=== PATIENT | female | born 1995 | race Caucasian/White ===

== ENCOUNTER 2017-11-11 09:48 | Emergency (ER) | payer OTHER ==
[2017-11-11 10:02] VITALS: RESP 18
[2017-11-11] MEDS ORDERED: ACETAMINOPHEN TAB 500 MG TAB PO STA (10:18)
[2017-11-11] MEDS ORDERED: IBUPROFEN 600 MG TAB PO STA (10:18)
[2017-11-11 10:51] LABS: Appearance,Urine Cloudy (Clear); Bacteria,Urine Many /hpf; Bilirubin,Urine Negative (Negative); Blood,Urine Moderate (Negative); Color,Urine Yellow; Glucose,Urine (UA) Negative (Negative); Ketones,Urine 2+ (Negative); Leukocyte Esterase,Urine Small (Negative); Mucus,Urine Rare /hpf; Nitrite,Urine Negative (Negative); Protein,Urine 1+ (Negative); RBC,Urine 27 /hpf (0-5); Specific Gravity,Urine 1.013 (1.001-1.035); Squamous Epithelial Cell,Urine 1 /hpf (0-4); Urobilinogen,Urine >12.0 mg/dL (<2.0); WBC,Urine 23 /hpf (0-5)
--- NOTE | 2017-11-11 11:19 | ED ---
General Adult HPI - General Chief complaint: Urogenital Stated complaint: Blood in urine Time Seen by Provider: 11/11/17 10:14 Source: patient, RN notes reviewed Mode of arrival: ambulatory Limitations: no limitations - History of Present Illness Initial comments: This a 22-year-old female presents emergency Department chief complaint of hematuria. Patient states that she noticed some blood in her urine this morning. She denies any dysuria or urinary frequency. Patient states that she was diagnosed with lens a yesterday. Patient states her primary care physician gave her Tamiflu and antibiotics secondary to possibility of pneumonia. Patient denies any recent Tylenol Motrin. She denies any nausea vomiting diarrhea constipation. Patient had no prior kidney stones. Denies any chance . - Related Data Home Medications Medication Instructions Recorded Confirmed Aviane 28 1 tab PO DAILY 11/11/17 11/11/17 Azithromycin [Zithromax Z-pack] See Taper PO DAILY 11/11/17 11/11/17 Ibuprofen [Motrin Ib] 400 mg PO Q6H PRN 11/11/17 11/11/17 Oseltamivir [Tamiflu] 75 mg PO Q12HR 11/11/17 11/11/17 Previous Rx's Medication Instructions Recorded Sulfamethox-Tmp 800-160Mg [Bactrim 1 each PO Q12HR #14 tab 11/11/17 Ds] Allergies Allergy/AdvReac Type Severity Reaction Status Date / Time No Known Allergies Allergy Verified 11/11/17 10:08 Review of Systems ROS Statement: Those systems with pertinent positive or pertinent negative responses have been documented in the HPI. ROS Other: All systems not noted in ROS Statement are negative. Past Medical History Past Medical History: No Reported History History of Any Multi-Drug Resistant Organisms: None Reported Past Surgical History: No Surgical Hx Reported Past Anesthesia/Blood Transfusion Reactions: No Reported Reaction Past Psychological History: No Psychological Hx Reported Smoking Status: Current every day smoker Past Alcohol Use History: Occasional Past Drug Use History: None Reported - Past Family History Mother History Unknown: Yes General Exam Limitations: no limitations General appearance: alert, in no apparent distress Head exam: Present: atraumatic, normocephalic, normal inspection ENT exam: Present: normal exam, normal oropharynx, mucous membranes moist Neck exam: Present: normal inspection, full ROM. Absent: tenderness, meningismus, lymphadenopathy Respiratory exam: Present: normal lung sounds bilaterally. Absent: respiratory distress, wheezes, rales, rhonchi, stridor Cardiovascular Exam: Present: normal rhythm, tachycardia, normal heart sounds. Absent: systolic murmur, diastolic murmur, rubs, gallop, clicks GI/Abdominal exam: Present: soft, normal bowel sounds. Absent: distended, tenderness, guarding, rebound, rigid Back exam: Absent: CVA tenderness (R), CVA tenderness (L) Course Vital Signs 11/11/17 10:00 Temperature 100 F H Pulse Rate 129 H Respiratory 18 Rate Blood Pressure 119/74 O2 Sat by Pulse 96 Oximetry Medical Decision Making - Medical Decision Making 22-year-old female presented emergency department with chief complaint of hematuria. Patient is on have ER tract infection. Patient had lab work because of his elevated urobilinogen. Patient's labwork is unremarkable. Patient's advise her urine rechecked after treatment and return parameters were discussed. - Lab Data Result diagrams: 11/11/17 11:12 11/11/17 11:12 Lab Results 11/11/17 11/11/17 11/11/17 Range/Units 10:31 10:31 11:12 WBC 11.0 H (3.8-10.6) k/uL RBC 4.46 (3.80-5.40) m/uL Hgb 12.7 (11.4-16.0) gm/dL Hct 37.1 (34.0-46.0) % MCV 83.2 (80.0-100.0) fL MCH 28.5 (25.0-35.0) pg MCHC 34.3 (31.0-37.0) g/dL RDW 12.9 (11.5-15.5) % Plt Count 220 (150-450) k/uL Neutrophils % 78 % Lymphocytes % 12 % Monocytes % 7 % Eosinophils % 0 % Basophils % 0 % Neutrophils # 8.6 H (1.3-7.7) k/uL Lymphocytes # 1.3 (1.0-4.8) k/uL Monocytes # 0.7 (0-1.0) k/uL Eosinophils # 0.0 (0-0.7) k/uL Basophils # 0.0 (0-0.2) k/uL Sodium (137-145) mmol/L Potassium (3.5-5.1) mmol/L Chloride (98-107) mmol/L Carbon Dioxide (22-30) mmol/L Anion Gap mmol/L BUN (7-17) mg/dL Creatinine (0.52-1.04) mg/dL Est GFR (MDRD) Af Amer (>60 ml/min/1.73 sqM) Est GFR (MDRD) Non-Af (>60 ml/min/1.73 sqM) Glucose (74-99) mg/dL Calcium (8.4-10.2) mg/dL Total Bilirubin (0.2-1.3) mg/dL AST (14-36) U/L ALT (9-52) U/L Alkaline Phosphatase (38-126) U/L Total Protein (6.3-8.2) g/dL Albumin (3.5-5.0) g/dL Lipase (23-300) U/L Urine Color Yellow Urine Appearance Cloudy H (Clear) Urine pH 6.0 (5.0-8.0) Ur Specific [place] 1.013 (1.001-1.035) Urine Protein 1+ H (Negative) Urine Glucose (UA) Negative (Negative) Urine Ketones 2+ H (Negative) Urine Blood Moderate H (Negative) Urine Nitrite Negative (Negative) Urine Bilirubin Negative (Negative) Urine Urobilinogen >12.0 (<2.0) mg/dL Ur Leukocyte Esterase Small H (Negative) Urine RBC 27 H (0-5) /hpf Urine WBC 23 H (0-5) /hpf Ur Squamous Epith Cells 1 (0-4) /hpf Urine Bacteria Many H (None) /hpf Urine Mucus Rare H (None) /hpf Urine HCG, Qual Not Detected (Not Detectd) 11/11/17 11/11/17 Range/Units 11:12 11:12 WBC (3.8-10.6) k/uL RBC (3.80-5.40) m/uL Hgb (11.4-16.0) gm/dL Hct (34.0-46.0) % MCV (80.0-100.0) fL MCH (25.0-35.0) pg MCHC (31.0-37.0) g/dL RDW (11.5-15.5) % Plt Count (150-450) k/uL Neutrophils % % Lymphocytes % % Monocytes % % Eosinophils % % Basophils % % Neutrophils # (1.3-7.7) k/uL Lymphocytes # (1.0-4.8) k/uL Monocytes # (0-1.0) k/uL Eosinophils # (0-0.7) k/uL Basophils # (0-0.2) k/uL Sodium 139 (137-145) mmol/L Potassium 3.7 (3.5-5.1) mmol/L Chloride 102 (98-107) mmol/L Carbon Dioxide 24 (22-30) mmol/L Anion Gap 13 mmol/L BUN 7 (7-17) mg/dL Creatinine 0.63 (0.52-1.04) mg/dL Est GFR (MDRD) Af Amer >60 (>60 ml/min/1.73 sqM) Est GFR (MDRD) Non-Af >60 (>60 ml/min/1.73 sqM) Glucose 96 (74-99) mg/dL Calcium 9.0 (8.4-10.2) mg/dL Total Bilirubin 1.0 (0.2-1.3) mg/dL AST 16 (14-36) U/L ALT 27 (9-52) U/L Alkaline Phosphatase 82 (38-126) U/L Total Protein 6.9 (6.3-8.2) g/dL Albumin 3.8 (3.5-5.0) g/dL Lipase 58 (23-300) U/L Urine Color Urine Appearance (Clear) Urine pH (5.0-8.0) Ur Specific [place] (1.001-1.035) Urine Protein (Negative) Urine Glucose (UA) (Negative) Urine Ketones (Negative) Urine Blood (Negative) Urine Nitrite (Negative) Urine Bilirubin (Negative) Urine Urobilinogen (<2.0) mg/dL Ur Leukocyte Esterase (Negative) Urine RBC (0-5) /hpf Urine WBC (0-5) /hpf Ur Squamous Epith Cells (0-4) /hpf Urine Bacteria (None) /hpf Urine Mucus (None) /hpf Urine HCG, Qual (Not Detectd) Disposition Clinical Impression: Urinary tract infection Disposition: HOME SELF-CARE Condition: Stable Instructions: Urinary Tract Infection in Women (ED) Additional Instructions: Please return to the Emergency Department if symptoms worsen or any other concerns. Prescriptions: Sulfamethox-Tmp 800-160Mg [Bactrim Ds] 1 each PO Q12HR #14 tab Referrals: Ford Joe MD [Primary Care Provider] - 1-2 days Time of Disposition: 12:05
[2017-11-11 11:34] LABS: ALT 27 U/L (9-52); AST 16 U/L (14-36); Albumin 3.8 g/dL (3.5-5.0); Alkaline Phosphatase 82 U/L (38-126); Anion Gap 13 mmol/L; Blood Urea Nitrogen 7 mg/dL (7-17); Carbon Dioxide 24 mmol/L (22-30); Chloride 102 mmol/L (98-107); Glucose 96 mg/dL (74-99); Potassium 3.7 mmol/L (3.5-5.1); Sodium 139 mmol/L (137-145); Total Protein 6.9 g/dL (6.3-8.2)
[2017-11-11 11:44] LABS: Basophils % (A) 0 %; Eosinophils % (A) 0 %; HCT 37.1 % (34.0-46.0); HGB 12.7 gm/dL (11.4-16.0); Lymphocytes # (A) 1.3 k/uL (1.0-4.8); Lymphocytes % (A) 12 %; MCH 28.5 pg (25.0-35.0); MCHC 34.3 g/dL (31.0-37.0); MCV 83.2 fL (80.0-100.0); Mean Platelet Volume 6.8; Monocytes # (A) 0.7 k/uL (0-1.0); Monocytes % (A) 7 %; Neutrophils # (A) 8.6 k/uL (1.3-7.7); Neutrophils % (A) 78 %; Platelet Count 220 k/uL (150-450); RBC 4.46 m/uL (3.80-5.40); RDW 12.9 % (11.5-15.5)
[2017-11-11] MEDS ORDERED: SODIUM CHLORIDE 0.9% 1,000 ML IV ONE (11:49)
[2017-11-11 12:20] VITALS: BP 110/67; PULSE 93; TEMP 98.6
== END 2017-11-11 12:28 | disposition home or self-care (01) ==
LOC: EC 09:48
DX: N39.0 Urinary tract infection, site not specified (principal); F17.200 Nicotine dependence, unspecified, uncomplicated; Z79.899 Other long term (current) drug therapy
CPT/HCPCS: 36415; 80053; 81001; 81025; 83690; 85025; 87077; 87086; 87186; 99283

== ENCOUNTER 2019-06-26 08:01 | Emergency (ER) | payer OTHER ==
[2019-06-26 08:05] VITALS: TEMP 98.5
[2019-06-26] MEDS ORDERED: SODIUM CHLORIDE 0.9% 1,000 ML IV ONE ×2 (08:06)
--- NOTE | 2019-06-26 08:18 | ED ---
Female Urogenital HPI - General Chief complaint: Vaginal Bleeding Stated complaint: Poss miscarriage Time Seen by Provider: 06/26/19 08:05 Source: patient, RN notes reviewed, old records reviewed Mode of arrival: ambulatory Limitations: no limitations - History of Present Illness Initial comments: Patient is a 23-year-old female presents emergency department today for chief complaint of vaginal bleeding times one day. Patient is a female. Ramona ent reports she is partially 5 weeks last menstrual period Patient states that she's had minor cramping but no specific location of pain. Patient states she's had no fevers or chills changes in urination or bowel habits. Patient reports that her [employer] is Dr. Gonzalez. She states she has an appointment in 5 weeks. - Related Data Home Medications Medication Instructions Recorded Confirmed Aviane 28 1 tab PO DAILY 11/11/17 11/11/17 Azithromycin [Zithromax Z-pack] See Taper PO DAILY 11/11/17 11/11/17 Ibuprofen [Motrin Ib] 400 mg PO Q6H PRN 11/11/17 11/11/17 Oseltamivir [Tamiflu] 75 mg PO Q12HR 11/11/17 11/11/17 Previous Rx's Medication Instructions Recorded Sulfamethox-Tmp 800-160Mg [Bactrim 1 each PO Q12HR #14 tab 11/11/17 Ds] Allergies Allergy/AdvReac Type Severity Reaction Status Date / Time No Known Allergies Allergy Verified 06/26/19 08:02 Review of Systems ROS Statement: Those systems with pertinent positive or pertinent negative responses have been documented in the HPI. ROS Other: All systems not noted in ROS Statement are negative. Past Medical History Past Medical History: No Reported History History of Any Multi-Drug Resistant Organisms: None Reported Past Surgical History: No Surgical Hx Reported Past Anesthesia/Blood Transfusion Reactions: No Reported Reaction Past Psychological History: No Psychological Hx Reported Smoking Status: Former smoker Past Alcohol Use History: Occasional Past Drug Use History: Marijuana - Past Family History Mother History Unknown: Yes General Exam - General Exam Comments Initial Comments: 23-year-old female. Alert and oriented. Limitations: no limitations General appearance: alert, in no apparent distress Head exam: Present: atraumatic, normocephalic, normal inspection Eye exam: Present: normal appearance, PERRL, EOMI. Absent: scleral icterus, conjunctival injection, periorbital swelling ENT exam: Present: normal exam, mucous membranes moist Neck exam: Present: normal inspection. Absent: tenderness, meningismus, lymphadenopathy Respiratory exam: Present: normal lung sounds bilaterally. Absent: respiratory distress, wheezes, rales, rhonchi, stridor Cardiovascular Exam: Present: regular rate, normal rhythm, normal heart sounds. Absent: systolic murmur, diastolic murmur, rubs, gallop, clicks GI/Abdominal exam: Present: soft, normal bowel sounds. Absent: distended, tenderness, guarding, rebound, rigid External exam: Present: normal external exam Speculum exam: Present: vaginal bleeding (Does have moderate amount of vaginal bleeding.). Absent: normal speculum exam By manual exam: Present: normal by manual exam. Absent: cervical motion tenderness, adnexal tenderness, adnexal mass, uterine enlargement Extremities exam: Present: normal inspection, full ROM, normal capillary refill. Absent: tenderness, pedal edema, joint swelling, calf tenderness Back exam: Present: normal inspection Neurological exam: Present: alert, oriented X3, CN II-XII intact Psychiatric exam: Present: normal affect, normal mood Skin exam: Present: warm, dry, intact, normal color. Absent: rash Course Vital Signs 06/26/19 08:02 Temperature 98.5 F Pulse Rate 93 Respiratory 18 Rate Blood Pressure 123/77 O2 Sat by Pulse 100 Oximetry Medical Decision Making - Medical Decision Making 23-year-old female. Alert and oriented. No significant distress. She wouldn't stay for vaginal bleeding, starting lasting. She is approximately 5 weeks . She is a female. She is Rh+ blood type. HCG level 7.4. A low for approximately 5 weeks in . Patient did have a moderate amount of bleeding on vaginal exam. WAS COMPLETED AND SHOWS NO SIGNS OF INTRAUTERINE OR ECTOPIC . I DISCUSSED THE PATIENT IS LIKELY HAVING A MISCARRIAGE. DISCUSSED SHE CAN REPEAT HER HCG LEVEL IN 2 DAYS. I DISCUSSED THE FOLLOWING UP WITH DR. GONZALEZ WELL. ALL QUESTIONS WERE ANSWERED RETURN PARAMETERS WERE DISCUSSED. - Lab Data Result diagrams: 06/26/19 00:15 Lab Results 06/26/19 06/26/19 06/26/19 Range/Units 00:15 00:15 00:15 WBC 9.2 (3.8-10.6) k/uL RBC 4.89 (3.80-5.40) m/uL Hgb 13.9 (11.4-16.0) gm/dL Hct 40.8 (34.0-46.0) % MCV 83.6 (80.0-100.0) fL MCH 28.4 (25.0-35.0) pg MCHC 34.0 (31.0-37.0) g/dL RDW 13.1 (11.5-15.5) % Plt Count 309 (150-450) k/uL Neutrophils % 52 % Lymphocytes % 38 % Monocytes % 5 % Eosinophils % 2 % Basophils % 0 % Neutrophils # 4.8 (1.3-7.7) k/uL Lymphocytes # 3.5 (1.0-4.8) k/uL Monocytes # 0.5 (0-1.0) k/uL Eosinophils # 0.2 (0-0.7) k/uL Basophils # 0.0 (0-0.2) k/uL PT 10.8 (9.0-12.0) sec INR 1.0 (<1.2) APTT 27.6 (22.0-30.0) sec HCG, Quant mIU/mL Urine Color Urine Appearance (Clear) Urine pH (5.0-8.0) Ur Specific [place] (1.001-1.035) Urine Protein (Negative) Urine Glucose (UA) (Negative) Urine Ketones (Negative) Urine Blood (Negative) Urine Nitrite (Negative) Urine Bilirubin (Negative) Urine Urobilinogen (<2.0) mg/dL Ur Leukocyte Esterase (Negative) Urine RBC (0-5) /hpf Urine WBC (0-5) /hpf Ur Squamous Epith Cells (0-4) /hpf Urine Mucus (None) /hpf Blood Type O Positive Blood Type Recheck O Pos Bld Type Recheck Status No 06/26/19 06/26/19 Range/Units 00:15 08:40 WBC (3.8-10.6) k/uL RBC (3.80-5.40) m/uL Hgb (11.4-16.0) gm/dL Hct (34.0-46.0) % MCV (80.0-100.0) fL MCH (25.0-35.0) pg MCHC (31.0-37.0) g/dL RDW (11.5-15.5) % Plt Count (150-450) k/uL Neutrophils % % Lymphocytes % % Monocytes % % Eosinophils % % Basophils % % Neutrophils # (1.3-7.7) k/uL Lymphocytes # (1.0-4.8) k/uL Monocytes # (0-1.0) k/uL Eosinophils # (0-0.7) k/uL Basophils # (0-0.2) k/uL PT (9.0-12.0) sec INR (<1.2) APTT (22.0-30.0) sec HCG, Quant 7.4 mIU/mL Urine Color Yellow Urine Appearance Clear (Clear) Urine pH 5.5 (5.0-8.0) Ur Specific [place] 1.014 (1.001-1.035) Urine Protein Negative (Negative) Urine Glucose (UA) Negative (Negative) Urine Ketones Negative (Negative) Urine Blood Moderate H (Negative) Urine Nitrite Negative (Negative) Urine Bilirubin Negative (Negative) Urine Urobilinogen <2.0 (<2.0) mg/dL Ur Leukocyte Esterase Negative (Negative) Urine RBC 4 (0-5) /hpf Urine WBC 1 (0-5) /hpf Ur Squamous Epith Cells 1 (0-4) /hpf Urine Mucus Rare H (None) /hpf Blood Type Blood Type Recheck Bld Type Recheck Status - Radiology Data Radiology results: report reviewed No identified intrauterine or if she had gestation. Short-term follow-up certainly changes should be suggested. Disposition Clinical Impression: Miscarriage Disposition: HOME SELF-CARE Condition: Good Instructions (If sedation given, give patient instructions): Miscarriage (ED) Additional Instructions: Please use medication as discussed. Please follow up with family doctor if symptoms have not improved over the next two days. Repeat her hCG level in 2 days. Please return to the emergency room if your symptoms increase or worsen or for any other concerns. Is patient prescribed a controlled substance at d/c from ED?: No Referrals: Ford Joe MD [Primary Care Provider] - 1-2 days Reggie Rosario DO [Doctor of Osteopathic Medicine] - 1-2 days Time of Disposition: 09:23
[2019-06-26 08:37] LABS: Basophils % (A) 0 %; Eosinophils # (A) 0.2 k/uL (0-0.7); Eosinophils % (A) 2 %; HCT 40.8 % (34.0-46.0); HGB 13.9 gm/dL (11.4-16.0); Lymphocytes # (A) 3.5 k/uL (1.0-4.8); Lymphocytes % (A) 38 %; MCH 28.4 pg (25.0-35.0); MCV 83.6 fL (80.0-100.0); Mean Platelet Volume 5.6; Monocytes # (A) 0.5 k/uL (0-1.0); Monocytes % (A) 5 %; Neutrophils # (A) 4.8 k/uL (1.3-7.7); Neutrophils % (A) 52 %; Platelet Count 309 k/uL (150-450); RBC 4.89 m/uL (3.80-5.40); RDW 13.1 % (11.5-15.5); WBC 9.2 k/uL (3.8-10.6)
[2019-06-26 08:55] LABS: Partial Thromboplastin Time 27.6 sec (22.0-30.0); Prothrombin Time 10.8 sec (9.0-12.0)
[2019-06-26 09:09] LABS: Appearance,Urine Clear (Clear); Bilirubin,Urine Negative (Negative); Blood,Urine Moderate (Negative); Color,Urine Yellow; Glucose,Urine (UA) Negative (Negative); Ketones,Urine Negative (Negative); Leukocyte Esterase,Urine Negative (Negative); Mucus,Urine Rare /hpf; Nitrite,Urine Negative (Negative); PH, Urine 5.5 (5.0-8.0); Protein,Urine Negative (Negative); RBC,Urine 4 /hpf (0-5); Specific Gravity,Urine 1.014 (1.001-1.035); Squamous Epithelial Cell,Urine 1 /hpf (0-4); Urobilinogen,Urine <2.0 mg/dL (<2.0); WBC,Urine 1 /hpf (0-5)
--- NOTE | 2019-06-26 09:18 | US ---
EXAMINATION TYPE: Transabdominal DATE OF EXAM: 06/26/2019 9:06 AM COMPARISON: NONE CLINICAL HISTORY: bleeding early . EXAM PERFORMED: Transvaginal (TV) and Transabdominal (TA) EXAM MEASUREMENTS: GESTATIONAL AGE / DATING Physician Established: Not yet established Dates by LMP: 05/23/2019 (4 weeks/6 days) EDC: 02/27/2020 Dates by First Scan: No previous this is first scan Dates by Current Scan for: No IUP seen at this time MATERNAL ANATOMY Uterus: 7.5 x 4.9 x 6.4 cm Right Ovary: 2.1 x 1.7 x 2.6 cm Left Ovary: 1.8 x 1.7 x 1.7 cm Post CDS / Adnexa: wnl Presence of free fluid: none Presence of corpus luteal cyst: none seen GESTATION / SURVEY No sign of an IUP, endo not thickened. No adnexal masses. Date of LMP: 05/23/2019 Beta HcG (if available): 7.4 IMPRESSION: WE'VE NOT IDENTIFIED INTRAUTERINE OR EXTRAUTERINE GESTATION. SHORT-TERM FOLLOW-UP +/- SERIAL BETA HCG S WOULD BE SUGGESTED.
[2019-06-26 09:37] VITALS: BP 110/62; PULSE 95; RESP 20
[2019-06-28 14:03] LABS: C. trachomatis,PCR Negative (Neg,Equiv); Chlamydia trachomatis Source Vagina
[2019-06-28 14:11] LABS: N. gonorrhoeae,PCR Negative (Neg,Equiv); Neisseria Source Vagina
== END 2019-06-26 09:37 | disposition home or self-care (01) ==
LOC: EC 08:01
DX: O03.9 Complete or unspecified spontaneous abortion without complication (principal); Z79.3 Long term (current) use of hormonal contraceptives; Z87.891 Personal history of nicotine dependence
CPT/HCPCS: 36415; 76801; 76817; 81001; 84702; 85025; 85610; 85730; 86900; 86901; 87070; 87491; 87591; 87808; 96360; 99284

== ENCOUNTER → 2019-06-28 | Outpatient (CLI) | payer OTHER | END | disposition home or self-care (01) | LOC: LABWHC1 08:49 | PROVIDERS: ATTEND Physician Assistant Medical | DX: O20.0 Threatened abortion (principal) | CPT/HCPCS: 36415; 84702 ==

== ENCOUNTER 2019-09-07 18:05 | Emergency (ER) | payer OTHER ==
[2019-09-07 18:13] VITALS: TEMP 97.1
--- NOTE | 2019-09-07 18:40 | ED ---
General Adult HPI - General Chief complaint: Abdominal Pain Stated complaint: abd pain Time Seen by Provider: 09/07/19 18:17 Source: patient Mode of arrival: ambulatory Limitations: no limitations - History of Present Illness Initial comments: Patient presents the ED with her boyfriend for evaluation. Patient states that she developed diffuse lower abdominal pain a couple of hours ago. She states that her pain has now localized to her right lower quadrant. Patient states that her pain is currently mild (4/10) and it was much more severe (8/10) at onset. Patient states that she also had similar diffuse lower abdominal pain 2 days ago. Patient also states that she had a loose bowel movement this evening. Patient denies trauma or injury, fever or chills, headache, chest pain, dyspnea, upper abdominal pain, back pain, nausea or vomiting, constipation, bloody or melanotic stool, dysuria/hematuria/urinary frequency/urinary symptoms, vaginal bleeding or discharge, or any other symptoms or complaints. - Related Data Home Medications Medication Instructions Recorded Confirmed Aviane 28 1 tab PO DAILY 11/11/17 11/11/17 Azithromycin [Zithromax Z-pack] See Taper PO DAILY 11/11/17 11/11/17 Ibuprofen [Motrin Ib] 400 mg PO Q6H PRN 11/11/17 11/11/17 Oseltamivir [Tamiflu] 75 mg PO Q12HR 11/11/17 11/11/17 Previous Rx's Medication Instructions Recorded Sulfamethox-Tmp 800-160Mg [Bactrim 1 each PO Q12HR #14 tab 11/11/17 Ds] Allergies Allergy/AdvReac Type Severity Reaction Status Date / Time No Known Allergies Allergy Verified 06/26/19 08:02 Review of Systems ROS Statement: Those systems with pertinent positive or pertinent negative responses have been documented in the HPI. ROS Other: All systems not noted in ROS Statement are negative. Past Medical History Past Medical History: No Reported History History of Any Multi-Drug Resistant Organisms: None Reported Past Surgical History: No Surgical Hx Reported Past Anesthesia/Blood Transfusion Reactions: No Reported Reaction Past Psychological History: No Psychological Hx Reported Smoking Status: Never smoker Past Alcohol Use History: Occasional Past Drug Use History: Marijuana - Past Family History Mother History Unknown: Yes General Exam Limitations: no limitations General appearance: alert, in no apparent distress Head exam: Present: atraumatic, normocephalic Eye exam: Present: normal appearance, EOMI ENT exam: Present: mucous membranes moist Neck exam: Present: other (Trachea is in midline) Respiratory exam: Present: normal lung sounds bilaterally. Absent: respiratory distress, wheezes, rales, rhonchi Cardiovascular Exam: Present: regular rate, normal rhythm, normal heart sounds, other (Normal radial pulses bilaterally) GI/Abdominal exam: Present: soft, normal bowel sounds, other (Patient has no abdominal tenderness on exam). Absent: distended, tenderness, guarding Extremities exam: Present: normal inspection. Absent: pedal edema Back exam: Absent: CVA tenderness (R), CVA tenderness (L) Neurological exam: Present: alert, oriented X3. Absent: motor sensory deficit Psychiatric exam: Present: normal affect, normal mood Skin exam: Present: warm, dry, intact, normal color Course Vital Signs 09/07/19 18:11 Temperature 97.1 F L Pulse Rate 82 Respiratory 18 Rate Blood Pressure 123/82 O2 Sat by Pulse 99 Oximetry - Reevaluation(s) Reevaluation #1: 09/07/19 20:43 Patient states that her pain has now improved, and she states that she feels "much better". Patient denies development of any new symptoms while in the ED. Patient's abdomen remains soft and nontender on exam. Patient is aware of her test results and she feels comfortable going home at this time. Medical Decision Making - Medical Decision Making Patient's abdomen is soft and nontender in exam. Patient's labs are fairly unremarkable. Patient's CT abdomen/pelvis is negative, including a normal appendix. I have explained to the patient that her symptoms may perhaps be secondary to an ovarian cyst or a diarrheal illness, do I not suspect a surgical condition or emergent medical condition. Patient was counseled about abdominal pain and she was clearly explained return and follow-up instructions. Patient was instructed to return to the ED should she develop new or worsening pain, a fever, vomiting, feeling dizzy or faint, shortness of breath, or near worsening symptoms. Patient was instructed to follow up closely with her primary care provider. Patient feels comfortable with this plan. - Lab Data Result diagrams: 09/07/19 18:40 09/07/19 18:40 Lab Results 09/07/19 09/07/19 09/07/19 Range/Units 18:40 18:40 18:40 WBC 11.8 H (3.8-10.6) k/uL RBC 4.81 (3.80-5.40) m/uL Hgb 13.9 (11.4-16.0) gm/dL Hct 39.7 (34.0-46.0) % MCV 82.6 (80.0-100.0) fL MCH 28.9 (25.0-35.0) pg MCHC 35.0 (31.0-37.0) g/dL RDW 13.0 (11.5-15.5) % Plt Count 321 (150-450) k/uL Neutrophils % 68 % Lymphocytes % 24 % Monocytes % 4 % Eosinophils % 2 % Basophils % 0 % Neutrophils # 8.0 H (1.3-7.7) k/uL Lymphocytes # 2.8 (1.0-4.8) k/uL Monocytes # 0.5 (0-1.0) k/uL Eosinophils # 0.2 (0-0.7) k/uL Basophils # 0.0 (0-0.2) k/uL Sodium 140 (137-145) mmol/L Potassium 3.8 (3.5-5.1) mmol/L Chloride 107 (98-107) mmol/L Carbon Dioxide 26 (22-30) mmol/L Anion Gap 7 mmol/L BUN 12 (7-17) mg/dL Creatinine 0.88 (0.52-1.04) mg/dL Est GFR (CKD-EPI)AfAm >90 (>60 ml/min/1.73 sqM) Est GFR (CKD-EPI)NonAf >90 (>60 ml/min/1.73 sqM) Glucose 91 (74-99) mg/dL Calcium 9.5 (8.4-10.2) mg/dL Total Bilirubin 0.5 (0.2-1.3) mg/dL AST 25 (14-36) U/L ALT 13 (4-34) U/L Alkaline Phosphatase 96 (38-126) U/L Total Protein 7.8 (6.3-8.2) g/dL Albumin 4.6 (3.5-5.0) g/dL Lipase 107 (23-300) U/L HCG, Quant <2.4 mIU/mL Urine Color Light Yellow Urine Appearance Clear (Clear) Urine pH 6.0 (5.0-8.0) Ur Specific [place] 1.005 (1.001-1.035) Urine Protein Negative (Negative) Urine Glucose (UA) Negative (Negative) Urine Ketones Negative (Negative) Urine Blood Negative (Negative) Urine Nitrite Negative (Negative) Urine Bilirubin Negative (Negative) Urine Urobilinogen <2.0 (<2.0) mg/dL Ur Leukocyte Esterase Negative (Negative) - Radiology Data Radiology results: report reviewed (CT abdomen/pelvis is negative, normal appendix) Disposition Clinical Impression: Abdominal pain Disposition: HOME SELF-CARE Condition: Stable Instructions (If sedation given, give patient instructions): Abdominal Pain (ED) Additional Instructions: Return to the ER immediately should you develop new or worsening pain, a fever, vomiting, feeling dizzy or faint, shortness of breath, or new or worsening symptoms. Follow up closely with your primary care provider. Is patient prescribed a controlled substance at d/c from ED?: No Referrals: Ford Joe MD [Primary Care Provider] - 1-2 days Time of Disposition: 20:41
[2019-09-07 18:51] LABS: Appearance,Urine Clear (Clear); Bilirubin,Urine Negative (Negative); Blood,Urine Negative (Negative); Color,Urine Light Yellow; Glucose,Urine (UA) Negative (Negative); Ketones,Urine Negative (Negative); Leukocyte Esterase,Urine Negative (Negative); Nitrite,Urine Negative (Negative); Protein,Urine Negative (Negative); Specific Gravity,Urine 1.005 (1.001-1.035); Urobilinogen,Urine <2.0 mg/dL (<2.0)
[2019-09-07 19:01] LABS: ALT 13 U/L (4-34); AST 25 U/L (14-36); African American GFR (CKD) >90 (>60 ml/min/1.73 sqM); Albumin 4.6 g/dL (3.5-5.0); Alkaline Phosphatase 96 U/L (38-126); Anion Gap 7 mmol/L; Blood Urea Nitrogen 12 mg/dL (7-17); Calcium 9.5 mg/dL (8.4-10.2); Carbon Dioxide 26 mmol/L (22-30); Chloride 107 mmol/L (98-107); Glucose 91 mg/dL (74-99); Non-African American GFR(CKD) >90 (>60 ml/min/1.73 sqM); Potassium 3.8 mmol/L (3.5-5.1); Sodium 140 mmol/L (137-145); Total Bilirubin 0.5 mg/dL (0.2-1.3); Total Protein 7.8 g/dL (6.3-8.2)
[2019-09-07 19:17] LABS: Basophils % (A) 0 %; Eosinophils # (A) 0.2 k/uL (0-0.7); Eosinophils % (A) 2 %; HCG,Quantitative Serum <2.4 mIU/mL; HCT 39.7 % (34.0-46.0); HGB 13.9 gm/dL (11.4-16.0); Lymphocytes # (A) 2.8 k/uL (1.0-4.8); Lymphocytes % (A) 24 %; MCH 28.9 pg (25.0-35.0); MCV 82.6 fL (80.0-100.0); Mean Platelet Volume 6.9; Monocytes # (A) 0.5 k/uL (0-1.0); Monocytes % (A) 4 %; Neutrophils % (A) 68 %; Platelet Count 321 k/uL (150-450); RBC 4.81 m/uL (3.80-5.40); WBC 11.8 k/uL (3.8-10.6)
--- NOTE | 2019-09-07 20:21 | CT ---
EXAMINATION TYPE: CT abdomen pelvis wo con DATE OF EXAM: 09/07/2019 COMPARISON: None HISTORY: Abdominal pain CT DLP: mGycm Automated exposure control for dose reduction was used. Multiple axial sections were obtained from the diaphragm to the floor the pelvis with no contrast. FINDINGS: Lung bases are clear. There is no pleural effusion. Heart size is normal. There is no pericardial eff usion. Stomach appears normal. Liver spleen pancreas gallbladder appear normal. Bile ducts are not di lated. There is no adrenal mass. Kidneys show normal size and contour. There is no hydronephrosis. There is no retroperitoneal adenopathy. Appendix appears normal. Ureters are not dilated. Bladder distends smo othly. There is no inguinal hernia. Uterus is anteverted. There is no free fluid in the pelvis. Lumbar vertebra have normal spacing and alignment. Bony pelvis is intact. There is no mesenteric edema. There is no ascites or free air. There is no evidence of a bowel obstru ction. IMPRESSION: Negative CT scan abdomen and pelvis. Normal appendix.
[2019-09-07 20:57] VITALS: BP 132/74; PULSE 76; RESP 16
== END 2019-09-07 20:50 | disposition home or self-care (01) ==
LOC: EC 18:05
DX: R10.30 Lower abdominal pain, unspecified (principal); Z79.899 Other long term (current) drug therapy
CPT/HCPCS: 36415; 74176; 80053; 81003; 83690; 84702; 85025; 99284

== ENCOUNTER → 2019-10-05 | Outpatient (CLI) | payer OTHER | END | disposition home or self-care (01) | LOC: LABWHC1 16:12 | PROVIDERS: ATTEND Obstetrics & Gynecology | DX: Z34.01 Encounter for supervision of normal first pregnancy, first trimester (principal) | CPT/HCPCS: 36415; 84702 ==

== ENCOUNTER → 2019-10-07 | Outpatient (CLI) | payer OTHER | END | disposition home or self-care (01) | LOC: LABWHC1 15:23 | PROVIDERS: ATTEND Obstetrics & Gynecology | DX: Z34.01 Encounter for supervision of normal first pregnancy, first trimester (principal); Z3A.00 Weeks of gestation of pregnancy not specified | CPT/HCPCS: 36415; 84702 ==

== ENCOUNTER 2019-10-21 19:34 | Emergency (ER) | payer OTHER ==
[2019-10-21 19:38] VITALS: BP 141/90; TEMP 98.2
[2019-10-21] MEDS ORDERED: SODIUM CHLORIDE 0.9% 1,000 ML IV STA (20:06)
--- NOTE | 2019-10-21 20:23 | ED ---
General Adult HPI - General Chief complaint: Abdominal Pain Stated complaint: rectal bleeding Time Seen by Provider: 10/21/19 19:42 Source: patient, RN notes reviewed Mode of arrival: ambulatory Limitations: no limitations - History of Present Illness Initial comments: 24-year-old female currently 7 weeks presents to the emergency department for a chief complaint of rectal bleeding. Patient states that she had an episode of diarrhea with bright red blood. States there was one clot during this episode. Patient states that she has had similar episodes before. States that she was seen here for an episode at the end of August and had a negative CAT scan done. Patient states she was supposed to follow-up but did not do so. Patient states another episode occurred about a week ago. Patient describes these episodes as having sharp abdominal pain followed by an episode of diarrhea. Patient states this happened again today where she started having sharp abdominal pain and had diarrhea but then noticed blood with this. Patient denying any abdominal pain at this time. Denies any vaginal bleeding. States she is scheduled for a routine ultrasound in 4 days.Patient has no other complaints at this time including shortness of breath, chest pain, nausea or vomiting, headache, or visual changes. - Related Data Home Medications Medication Instructions Recorded Confirmed Aviane 28 1 tab PO DAILY 11/11/17 11/11/17 Azithromycin [Zithromax Z-pack] See Taper PO DAILY 11/11/17 11/11/17 Ibuprofen [Motrin Ib] 400 mg PO Q6H PRN 11/11/17 11/11/17 Oseltamivir [Tamiflu] 75 mg PO Q12HR 11/11/17 11/11/17 Previous Rx's Medication Instructions Recorded Sulfamethox-Tmp 800-160Mg [Bactrim 1 each PO Q12HR #14 tab 11/11/17 Ds] Allergies Allergy/AdvReac Type Severity Reaction Status Date / Time No Known Allergies Allergy Verified 10/21/19 19:38 Review of Systems ROS Statement: Those systems with pertinent positive or pertinent negative responses have been documented in the HPI. ROS Other: All systems not noted in ROS Statement are negative. Past Medical History Past Medical History: No Reported History History of Any Multi-Drug Resistant Organisms: None Reported Past Surgical History: No Surgical Hx Reported Past Anesthesia/Blood Transfusion Reactions: No Reported Reaction Past Psychological History: No Psychological Hx Reported Smoking Status: Never smoker Past Alcohol Use History: Occasional Past Drug Use History: Marijuana - Past Family History Mother History Unknown: Yes General Exam Limitations: no limitations General appearance: alert, in no apparent distress Head exam: Present: atraumatic, normocephalic, normal inspection Eye exam: Present: normal appearance, PERRL, EOMI. Absent: scleral icterus, conjunctival injection, periorbital swelling ENT exam: Present: normal exam, mucous membranes moist Neck exam: Present: normal inspection, full ROM. Absent: tenderness, meningismus, lymphadenopathy Respiratory exam: Present: normal lung sounds bilaterally. Absent: respiratory distress, wheezes, rales, rhonchi, stridor Cardiovascular Exam: Present: regular rate, normal rhythm, normal heart sounds. Absent: systolic murmur, diastolic murmur, rubs, gallop, clicks GI/Abdominal exam: Present: soft, normal bowel sounds. Absent: distended, tenderness, guarding, rebound, rigid Rectal exam: Present: normal inspection, normal rectal tone External exam: Present: normal external exam. Absent: erythema, swelling, lesions, lacerations, ecchymosis Speculum exam: Present: normal speculum exam. Absent: erythema, vaginal discharge, cervical discharge, vaginal bleeding (No vaginal bleeding noted), foreign body, tissue, laceration Course Vital Signs 10/21/19 19:36 Temperature 98.2 F Pulse Rate 116 H Respiratory 20 Rate Blood Pressure 141/90 O2 Sat by Pulse 99 Oximetry Medical Decision Making - Medical Decision Making CBC unremarkable. Mild steatosis which is likely reactive in nature. CMP unremarkable. Urinalysis is unremarkable as well. No evidence of infection. Occult blood negative at this time. I did do a pelvic exam a patient I do not see any cervical bleeding whatsoever. I reviewed previous CAT scan results as patient has had similar episodes prior to this. CAT scan was negative at that time. I recommended patient follow-up with GI. I did discuss talking with her HISTOLOGIC AIDE about this before following up in case they want her to wait until after her is completed. She will return here with any worsening symptoms otherwise. I discussed this case with attending Dr. Gordon who agrees with this assessment and treatment plan. - Lab Data Result diagrams: 10/21/19 19:48 10/21/19 19:48 Lab Results 10/21/19 10/21/19 10/21/19 Range/Units 19:48 19:48 20:33 WBC 12.6 H (3.8-10.6) k/uL RBC 4.72 (3.80-5.40) m/uL Hgb 13.5 (11.4-16.0) gm/dL Hct 39.5 (34.0-46.0) % MCV 83.5 (80.0-100.0) fL MCH 28.5 (25.0-35.0) pg MCHC 34.1 (31.0-37.0) g/dL RDW 13.1 (11.5-15.5) % Plt Count 288 (150-450) k/uL Neutrophils % 66 % Lymphocytes % 25 % Monocytes % 5 % Eosinophils % 1 % Basophils % 0 % Neutrophils # 8.3 H (1.3-7.7) k/uL Lymphocytes # 3.2 (1.0-4.8) k/uL Monocytes # 0.6 (0-1.0) k/uL Eosinophils # 0.1 (0-0.7) k/uL Basophils # 0.0 (0-0.2) k/uL Sodium 138 (137-145) mmol/L Potassium 3.8 (3.5-5.1) mmol/L Chloride 103 (98-107) mmol/L Carbon Dioxide 23 (22-30) mmol/L Anion Gap 12 mmol/L BUN 8 (7-17) mg/dL Creatinine 0.50 L (0.52-1.04) mg/dL Est GFR (CKD-EPI)AfAm >90 (>60 ml/min/1.73 sqM) Est GFR (CKD-EPI)NonAf >90 (>60 ml/min/1.73 sqM) Glucose 79 (74-99) mg/dL Calcium 9.4 (8.4-10.2) mg/dL Total Bilirubin 0.4 (0.2-1.3) mg/dL AST 21 (14-36) U/L ALT 11 (4-34) U/L Alkaline Phosphatase 78 (38-126) U/L Total Protein 7.6 (6.3-8.2) g/dL Albumin 4.5 (3.5-5.0) g/dL Urine Color Urine Appearance (Clear) Urine pH (5.0-8.0) Ur Specific [place] (1.001-1.035) Urine Protein (Negative) Urine Glucose (UA) (Negative) Urine Ketones (Negative) Urine Blood (Negative) Urine Nitrite (Negative) Urine Bilirubin (Negative) Urine Urobilinogen (<2.0) mg/dL Ur Leukocyte Esterase (Negative) Urine RBC (0-5) /hpf Urine WBC (0-5) /hpf Ur Squamous Epith Cells (0-4) /hpf Hyaline Casts (0-2) /lpf Urine Mucus (None) /hpf Urine HCG, Qual (Not Detectd) Stool Occult Blood Negative (Negative) 10/21/19 10/21/19 Range/Units 20:33 20:33 WBC (3.8-10.6) k/uL RBC (3.80-5.40) m/uL Hgb (11.4-16.0) gm/dL Hct (34.0-46.0) % MCV (80.0-100.0) fL MCH (25.0-35.0) pg MCHC (31.0-37.0) g/dL RDW (11.5-15.5) % Plt Count (150-450) k/uL Neutrophils % % Lymphocytes % % Monocytes % % Eosinophils % % Basophils % % Neutrophils # (1.3-7.7) k/uL Lymphocytes # (1.0-4.8) k/uL Monocytes # (0-1.0) k/uL Eosinophils # (0-0.7) k/uL Basophils # (0-0.2) k/uL Sodium (137-145) mmol/L Potassium (3.5-5.1) mmol/L Chloride (98-107) mmol/L Carbon Dioxide (22-30) mmol/L Anion Gap mmol/L BUN (7-17) mg/dL Creatinine (0.52-1.04) mg/dL Est GFR (CKD-EPI)AfAm (>60 ml/min/1.73 sqM) Est GFR (CKD-EPI)NonAf (>60 ml/min/1.73 sqM) Glucose (74-99) mg/dL Calcium (8.4-10.2) mg/dL Total Bilirubin (0.2-1.3) mg/dL AST (14-36) U/L ALT (4-34) U/L Alkaline Phosphatase (38-126) U/L Total Protein (6.3-8.2) g/dL Albumin (3.5-5.0) g/dL Urine Color Light Yellow Urine Appearance Clear (Clear) Urine pH 6.0 (5.0-8.0) Ur Specific [place] 1.007 (1.001-1.035) Urine Protein Negative (Negative) Urine Glucose (UA) Negative (Negative) Urine Ketones 1+ H (Negative) Urine Blood Trace H (Negative) Urine Nitrite Negative (Negative) Urine Bilirubin Negative (Negative) Urine Urobilinogen <2.0 (<2.0) mg/dL Ur Leukocyte Esterase Negative (Negative) Urine RBC <1 (0-5) /hpf Urine WBC <1 (0-5) /hpf Ur Squamous Epith Cells 1 (0-4) /hpf Hyaline Casts 1 (0-2) /lpf Urine Mucus Rare H (None) /hpf Urine HCG, Qual Detected (Not Detectd) Stool Occult Blood (Negative) Disposition Clinical Impression: Rectal bleeding Disposition: HOME SELF-CARE Condition: Good Instructions (If sedation given, give patient instructions): Rectal Bleeding (ED) Additional Instructions: Please follow up with OBGYN at your appointment on Friday and discuss possible GI referral. Follow up with primary care as well. Return to the ER for any worsening symptoms. Is patient prescribed a controlled substance at d/c from ED?: No Referrals: Ford Joe MD [Primary Care Provider] - 1-2 days Sylvia Gambino MD [STAFF PHYSICIAN] - 1-2 days Time of Disposition: 21:28
[2019-10-21 20:24] LABS: Basophils % (A) 0 %; Eosinophils # (A) 0.1 k/uL (0-0.7); Eosinophils % (A) 1 %; HCT 39.5 % (34.0-46.0); HGB 13.5 gm/dL (11.4-16.0); Lymphocytes # (A) 3.2 k/uL (1.0-4.8); Lymphocytes % (A) 25 %; MCH 28.5 pg (25.0-35.0); MCHC 34.1 g/dL (31.0-37.0); MCV 83.5 fL (80.0-100.0); Mean Platelet Volume 7.3; Monocytes # (A) 0.6 k/uL (0-1.0); Monocytes % (A) 5 %; Neutrophils # (A) 8.3 k/uL (1.3-7.7); Neutrophils % (A) 66 %; Platelet Count 288 k/uL (150-450); RBC 4.72 m/uL (3.80-5.40); RDW 13.1 % (11.5-15.5); WBC 12.6 k/uL (3.8-10.6)
[2019-10-21 20:29] LABS: ALT 11 U/L (4-34); AST 21 U/L (14-36); African American GFR (CKD) >90 (>60 ml/min/1.73 sqM); Albumin 4.5 g/dL (3.5-5.0); Alkaline Phosphatase 78 U/L (38-126); Anion Gap 12 mmol/L; Blood Urea Nitrogen 8 mg/dL (7-17); Calcium 9.4 mg/dL (8.4-10.2); Carbon Dioxide 23 mmol/L (22-30); Chloride 103 mmol/L (98-107); Glucose 79 mg/dL (74-99); Non-African American GFR(CKD) >90 (>60 ml/min/1.73 sqM); Potassium 3.8 mmol/L (3.5-5.1); Sodium 138 mmol/L (137-145); Total Bilirubin 0.4 mg/dL (0.2-1.3); Total Protein 7.6 g/dL (6.3-8.2)
[2019-10-21 20:43] LABS: Appearance,Urine Clear (Clear); Bilirubin,Urine Negative (Negative); Blood,Urine Trace (Negative); Color,Urine Light Yellow; Glucose,Urine (UA) Negative (Negative); Hyaline Casts,Urine 1 /lpf (0-2); Ketones,Urine 1+ (Negative); Leukocyte Esterase,Urine Negative (Negative); Mucus,Urine Rare /hpf; Nitrite,Urine Negative (Negative); Protein,Urine Negative (Negative); RBC,Urine <1 /hpf (0-5); Specific Gravity,Urine 1.007 (1.001-1.035); Squamous Epithelial Cell,Urine 1 /hpf (0-4); Urobilinogen,Urine <2.0 mg/dL (<2.0); WBC,Urine <1 /hpf (0-5)
[2019-10-21 21:42] VITALS: PULSE 89; RESP 16
== END 2019-10-21 21:51 | disposition home or self-care (01) ==
LOC: EC 19:34
DX: O99.89 Other specified diseases and conditions complicating pregnancy, childbirth and the puerperium (principal); K62.5 Hemorrhage of anus and rectum; Z3A.01 Less than 8 weeks gestation of pregnancy; R10.9 Unspecified abdominal pain
CPT/HCPCS: 36415; 80053; 81001; 81025; 82272; 85025; 96360; 99284

== ENCOUNTER → 2019-11-03 | Outpatient (CLI) | payer OTHER ==
[2019-11-03 16:22] LABS: HCT 37.2 % (34.0-46.0); HGB 12.6 gm/dL (11.4-16.0); MCH 28.5 pg (25.0-35.0); MCV 83.8 fL (80.0-100.0); Mean Platelet Volume 7.2; Platelet Count 292 k/uL (150-450); RBC 4.44 m/uL (3.80-5.40); RDW 13.3 % (11.5-15.5); WBC 13.3 k/uL (3.8-10.6)
[2019-11-03 16:29] LABS: African American GFR (CKD) >90 (>60 ml/min/1.73 sqM); Glucose 74 mg/dL (74-99); Non-African American GFR(CKD) >90 (>60 ml/min/1.73 sqM)
[2019-11-04 02:40] LABS: Hepatitis B Surface Antigen Non-Reactive (Non-Reactive)
[2019-11-04 02:52] LABS: Toxoplasma Antibody (IgG) <3.0 IU/mL (<7.2); Toxoplasma Antibody (IgM) <3.0 AU/mL (<8.0)
--- NOTE | 2019-11-04 03:53 | US ---
EXAMINATION TYPE: Ultrasound OB <= 14 week fetus DATE OF EXAM: 11/03/2019 3:17 PM COMPARISON: NONE CLINICAL HISTORY: 24-year-old female Z36 Confirm dates. EXAM PERFORMED: Transabdominal (TA) FINDINGS: EXAM MEASUREMENTS: GESTATIONAL AGE / DATING Physician Established: (9 weeks/1 day) EDC: 06/06/2020 Dates by LMP: (9 weeks/1 day) EDC: 06/06/2020 Dates by First Scan: No previous. Dates by Current Scan for: (9 weeks/0 days) EDC: 06/07/2020 MATERNAL ANATOMY Uterus: 9.8 x 5.3 x 5.7cm Right Ovary: 3.0 x 2.1 x 2.2cm; hypoechoic oval area seen in right ovary = 1.6 x 1.6 x 1.4cm suggesti ng a corpus luteum Left Ovary: 2.6 x 1.4 x 2.1 Post CDS / Adnexa: wnl Presence of free fluid: no Presence of corpus luteal cyst: in left ovary with peripheral ring of color flow = 1.6 x 1.5 x 1.0cm Presence of subchorionic bleed: no GESTATION / SURVEY CRL: 2.3cm (9 weeks/0 days) Yolk Sac (normal less than 6mm): 3.3mm Heart Rate: 179 bpm Rhythm: Normal IUP: Viable, single IUP Date of LMP: 08/31/2019 Beta HcG (if available): NA IMPRESSION: 1. Single live anterior with estimated gestational age of 9 weeks 1 day by LMP. Current ult rasound biometry is concordant (9 weeks 0 days). 2. Borderline tachycardia (179 BPM). Short interval follow-up can be considered. 3. Otherwise, complete survey recommended at 18-20 weeks.
== END ==
LOC: RADUSWWP 14:57
PROVIDERS: ATTEND Obstetrics & Gynecology
DX: Z36.89 Encounter for other specified antenatal screening (principal); Z34.81 Encounter for supervision of other normal pregnancy, first trimester; Z3A.09 9 weeks gestation of pregnancy
CPT/HCPCS: 36415; 76801; 82565; 82947; 85027; 86762; 86777; 86778; 86780; 86850; 86900; 86901; 87340

== ENCOUNTER 2020-05-03 04:20 | Outpatient (CLI) | payer OTHER ==
[2020-05-03 08:11] VITALS: BP 123/79; PULSE 75; RESP 16; TEMP 97.6
--- NOTE | 2020-05-04 09:36 | P.MSEPDOC ---
Presenting Problems - Arrival Data Date of Arrival on Unit: 05/03/20 Time of Arrival on Unit: 04:21 - Complaint OB-Reason for Admission/Chief Complaint: Pain Comment: Pt states throat and nose pain from vomitting and some coming out of her nose. Medical History - Information : 3 Para: 1 Term: 1 : 0 Abortions: Spontaneous or Elective: 1 Number of Living Children: 1 - Gestational Age Gestational Age by ARTHUR (wks/days): 35 Weeks and 4 Days Review of Systems - Review of Systems Constitutional: No problems Breast: No problems ENT: No problems Cardiovascular: No problems Respiratory: No problems Gastrointestinal: No problems Genitourinary: No problems Musculoskeletal: No problems Neurological: No problems Skin: No problems Vital Signs - Temperature Temperature: 97.6 F Temperature Source: Oral - Pulse Right Brachial Pulse Rate: 75 Pulse Assessment Method: Automatic Cuff - Respirations Respiratory Rate: 16 Oxygen Delivery Method: Room Air O2 Sat by Pulse Oximetry: 98 - Blood Pressure Right Arm Blood Pressure: 123/79 Blood Pressure Mean: 93 Blood Pressure Source: Automatic Cuff Medical Screen Scoring (Pre) - Cervical Exam Dilation: Exam Deferred Effacement: Exam Deferred - Uterine Contractions Frequency: N/A Duration: N/A Intensity: N/A - Maternal Vital Signs Maternal Temperature: N/A Maternal Respirations: N/A - Maternal Trauma Maternal Trauma: N/A - Assessment - Baby A Baseline FHR: 125 Heart Rate - NICHD Category: Category I (Normal) = 0 - Total Score - Baby A Total Score - Baby A: 0 - Total Score - Baby B Total Score - Baby B: 0 - Total Score - Baby C Total Score - Baby C: 0 - Level of Risk - Baby A Level of Risk - Baby A: Low (0-5) - Level of Risk - Baby B Level of Risk - Baby B: Low (0-5) - Level of Risk - Baby C Level of Risk - Baby C: Low (0-5) Physician Notification (Pre) - Physician Notified Physician Notified Date: 05/03/20 Physician Notified Time: 05:29 New Order Received: Yes - Notification Comment Comment: Reported s/s of pt complaints. Reported NST not reactive at this time, . moving. Orders to preform acustic stimulation. 0625 FHR reactive at this time, orders to d/c. Disposition - Disposition OB Disposition: Discharge to home Discharge Date: 05/03/20 Discharge Time: 06:27 I agree with the RN Medical Screening Exam: Yes Risk & Benefit of care provided described in d/c instruction: Yes Diagnosis: GASTRO-ESOPHAGEAL REFLUX DISEASE WITHOUT ESOPHAGITIS
== END 2020-05-03 06:27 | disposition home or self-care (01) ==
LOC: FBPOP 04:20
PROVIDERS: ATTEND Obstetrics & Gynecology
DX: O99.613 Diseases of the digestive system complicating pregnancy, third trimester (principal); K21.9 Gastro-esophageal reflux disease without esophagitis; Z3A.35 35 weeks gestation of pregnancy
CPT/HCPCS: 59025; G0463; 99213

== ENCOUNTER 2020-05-30 09:54 | Inpatient (IN) | payer OTHER ==
[2020-05-25 15:21] VITALS: BMI 30.1
[2020-05-30] MEDS ORDERED: CITRIC ACID-SODIUM CITRATE 15 ML CUP PO ONE (10:04)
[2020-05-30] MEDS: LACTATED RINGERS 1,000 ML IV SCH ×4 (10:14→22:25)
[2020-05-30 10:25] LABS: Basophils % (A) 0 %; Eosinophils # (A) 0.1 k/uL (0-0.7); Eosinophils % (A) 1 %; HCT 38.8 % (34.0-46.0); HGB 12.9 gm/dL (11.4-16.0); Lymphocytes % (A) 26 %; MCH 28.5 pg (25.0-35.0); MCHC 33.3 g/dL (31.0-37.0); MCV 85.5 fL (80.0-100.0); Mean Platelet Volume 9.1; Monocytes # (A) 0.5 k/uL (0-1.0); Monocytes % (A) 5 %; Neutrophils # (A) 7.7 k/uL (1.3-7.7); Neutrophils % (A) 66 %; Platelet Count 225 k/uL (150-450); RBC 4.54 m/uL (3.80-5.40); RDW 13.8 % (11.5-15.5); WBC 11.6 k/uL (3.8-10.6)
[2020-05-30] MEDS ORDERED: OXYTOCIN 10 UNIT/ML 1 ML VIAL ONE (12:10)
[2020-05-30] MEDS ORDERED: MORPHINE SULFATE (PF) 0.3 MG/0.3 ML SYR ONE (12:10)
[2020-05-30] MEDS ORDERED: ePHEDrine SULFATE/0.9% NACL/PF 50 MG/5 ML SYRINGE IV ONE (12:10)
[2020-05-30] MEDS ORDERED: ONDANSETRON 4 MG/2 ML VIAL ONE (12:10)
[2020-05-30] MEDS ORDERED: KETOROLAC 15 MG/ML 1 ML VIAL ONE (12:10)
[2020-05-30] MEDS ORDERED: ONDANSETRON 4 MG/2 ML VIAL IVP PRN ×2 (12:45→13:11)
[2020-05-30] MEDS ORDERED: diphenhydrAMINE 50 MG CAP PO PRN (12:45)
[2020-05-30] MEDS ORDERED: METOCLOPRAMIDE 5 MG/ML 2 ML VIAL IVP PRN (12:45)
[2020-05-30] MEDS ORDERED: HYDROcodone/APAP 7.5-325MG 1 EACH TAB PO PRN (12:45)
[2020-05-30] MEDS ORDERED: NALOXONE 0.4 MG/ML 1 ML VIAL IV PRN ×2 (12:45→13:11)
[2020-05-30] MEDS ORDERED: diphenhydrAMINE 50 MG/ML 1 ML VIAL IVP PRN ×2 (12:45)
[2020-05-30] MEDS ORDERED: diphenhydrAMINE 25 MG CAP PO PRN (12:45)
[2020-05-30] MEDS ORDERED: ZOLPIDEM 5 MG TAB PO PRN (12:45)
--- NOTE | 2020-05-30 12:48 | P.HPOB ---
History of Present Illness H&P Date: 05/30/20 Chief Complaint: Intrauterine at term history of severe shoulder d ystocia Patient is a 24-year-old at 39 weeks gestation arise her primary section due to history of shoulder dystocia. With her last her baby weighed 6 lbs. 3 oz. but she had a severe shoulder dystocia and we are moving forward with a primary section for same. Risks/benefits/alternatives to this procedure were reviewed with patient in detail and did include but were not limited to bleeding and infection, damage to bladder or bowel, nerve injuries, vascular injuries, ureteral damage. All questions are answered for her prior to proceeding to the operative room and otherwise her Precis course was generally unremarkable. Her only having some bloody diarrhea to be in the which resolved spontaneously. Pertinent labs include O+ blood type, or tenderness negative, rubella immune, hepatitis B surface antigen/RPR/GBS were all negative. Past Medical History Past Medical History: GERD/Reflux History of Any Multi-Drug Resistant Organisms: None Reported Past Surgical History: No Surgical Hx Reported Past Anesthesia/Blood Transfusion Reactions: No Reported Reaction Past Psychological History: No Psychological Hx Reported Smoking Status: Never smoker Past Alcohol Use History: None Reported Past Drug Use History: None Reported - Past Family History Mother History Unknown: Yes Medications and Allergies Home Medications Medication Instructions Recorded Confirmed Type Famotidine [Pepcid] 20 mg PO DAILY 05/03/20 05/30/20 History Pnv No.95/Ferrous Fum/Folic AC 1 each PO DAILY 05/03/20 05/30/20 History [ Multivitamin Tablet] Allergies Allergy/AdvReac Type Severity Reaction Status Date / Time No Known Allergies Allergy Verified 05/30/20 10:11 Exam Osteopathic Statement: *. No significant issues noted on an osteopathic structural exam other than those noted in the History and Physical/Consult. Vital Signs Temp Pulse Resp BP Pulse Ox 05/30/20 10:04 97.1 F L 79 16 114/70 99 Intake and Output 05/29/20 05/30/20 05/30/20 22:59 06:59 14:59 Other: Weight 68.039 kg - OBG Physical Exam Breast: both: normal (no masses) Abdomen: bowel sounds normal, no diffuse tenderness, no bruit present, no guarding noted, no hepatomegaly, no splenomegaly, no mass Vulva: both: normal Vagina: normal moisture, no discharge Cervix: no lesion, no discharge Uterus: normal size, normal contour Adnexa: both: normal Anus/Rectum: normal perianal skin, no rectal mass, no hemorrhoids, heme negative Results Result Diagrams: 05/30/20 10:13 Abnormal Lab Results - Last 24 Hours (Table) 05/30/20 Range/Units 10:13 WBC 11.6 H (3.8-10.6) k/uL
--- NOTE | 2020-05-30 12:51 | P.OP ---
Date of Procedure: 05/30/20 Preoperative Diagnosis: Intrauterine term: History of shoulder dystocia Postoperative Diagnosis: Same Procedure(s) Performed: Primary low transverse section Anesthesia: spinal Surgeon: Reggie Rosario [employer] Supervisor #1: Chica Jacobs Estimated Blood Loss (ml): 400 IV fluids (ml): 600 Urine output (ml): 200 Pathology: none sent Condition: stable Disposition: floor Operative Findings: Male scores of 9 and 9 at one and 5 minutes respectively weight was 6 lbs. 7 oz. Description of Procedure: Patient was taken to the operating suite where a spinal anesthetic was found be adequate. She was prepped and draped in normal sterile fashion and placed in dorsal supine position with leftward tilt. Initially a Pfannenstiel skin incision was made and this incision was then carried through to the underlying layer of the fascia with the second knife. Fascia was then nicked in the midline and this opening was extended laterally with Floyd scissors. Superior and inferior aspect of this incision were then grasped tented up and bluntly and sharply dissected off the rectus muscles. Rectus muscles were then divided midline and blunt dissection the peritoneum was done. This opening was then extended superiorly and inferiorly with good visualization of both bowel bladder. Bladder blade was then placed and the bladder flap identified. It was entered sharply with Metzenbaums scissors and carried across face the uterus and the bladder was then bluntly dissected out of the operative field. Knife was then used to incise uterus. This opening was then fully developed with a hemostat and then extended bluntly. Head was then atraumatically delivered and a nuchal cord 2 was noted and easily reduced. Once this was accomplished interim posterior shoulders were easily delivered followed by the remainder the baby. Umbilical cord was then clamped cut usual fashion an nursery personnel was present to assume care. Placenta was then delivered intact Pitocin was added to the IV. Uterus was then exteriorized cleared of clots debris and closed in 2 layers with 0 Vicryl suture. Once excellent hemostasis was obtained blood and debris was suctioned from the posterior cul-de-sac and uterus was reinserted into the abdomen. Peritoneal layer was then reapproximated with 0 Vicryl suture fascial layer was closed with 0 Vicryl suture one layer of 3-0 Vicryl was placed in deep subcuticular tissues to reapproximate skin and close that space. Skin was then closed with 4-0 Vicryl subcuticular. Sponge, lap, needle counts were all correct 2. Patient was then taken to the recovery room in stable and satisfactory condition.
[2020-05-30] MEDS ORDERED: HYDROmorphone 0.5 MG/0.5 ML SYRINGE IVP PRN (13:11)
[2020-05-30] MEDS ORDERED: OXYTOCIN 20 UNITS/1000 ML NS 1,000 ML IV SCH (13:45)
[2020-05-30] MEDS: KETOROLAC 15 MG/ML 1 ML VIAL IVP PRN (22:05)
[2020-05-30] MEDS: SENNOSIDES-DOCUSATE SODIUM 1 EACH TAB PO SCH (22:25)
--- NOTE | 2020-05-31 07:19 | P.PN ---
Progress Note - Text Progress Note Date: 05/31/20 Patient seen and examined POD # 1 s/p . Patient received spinal anesthesia with duramorph for post operative pain management. Patient with acceptable pain this morning. Patient able to ambulate and use the restroom without difficulty. Patient denies headache, fever, chills, chest pain, itching, dizziness, SOB, parathesias. Spinal site clean and without erythema. All questions answered.
[2020-05-31 07:35] LABS: Basophils % (A) 0 %; Eosinophils # (A) 0.1 k/uL (0-0.7); Eosinophils % (A) 1 %; HCT 29.7 % (34.0-46.0); Lymphocytes # (A) 2.7 k/uL (1.0-4.8); Lymphocytes % (A) 24 %; MCHC 33.5 g/dL (31.0-37.0); MCV 86.5 fL (80.0-100.0); Monocytes # (A) 0.6 k/uL (0-1.0); Monocytes % (A) 5 %; Neutrophils % (A) 68 %; Platelet Count 173 k/uL (150-450); RBC 3.43 m/uL (3.80-5.40); RDW 13.9 % (11.5-15.5); WBC 11.7 k/uL (3.8-10.6)
[2020-05-31] MEDS: KETOROLAC 15 MG/ML 1 ML VIAL IVP PRN (07:37)
[2020-05-31 07:51] LABS: HGB 9.9 gm/dL (11.4-16.0)
--- NOTE | 2020-05-31 08:29 | P.PNOBGPC ---
Subjective - Subjective Principal diagnosis: Postop day 1 Interval history: Patient is doing very well postop day 1. She is ambulating, voiding, and tolerating her diet. She voices no complaints. Vital signs are stable and afebrile. Heart regular, lungs clear, extremities without pain. Abdomen soft incisions clean dry and intact will plan to remove dressing later this morning. All questions are answered for her at this time. Assessment postop day 1. Plan continue care Objective - Vital Signs Latest vital signs: Vital Signs Temp Pulse Resp BP Pulse Ox 05/31/20 04:00 98.4 F 74 15 89/55 98 05/31/20 00:00 98.6 F 70 16 105/70 98 05/30/20 22:00 16 05/30/20 20:00 98.0 F 82 16 100/66 100 05/30/20 18:11 98 05/30/20 18:00 16 05/30/20 16:11 16 99 05/30/20 16:00 97.4 F L 67 16 113/74 99 05/30/20 14:53 72 16 114/74 100 05/30/20 14:23 61 16 123/76 99 05/30/20 14:11 16 100 05/30/20 13:53 73 16 112/70 100 05/30/20 13:38 63 16 124/74 99 05/30/20 13:23 64 16 126/76 98 05/30/20 13:11 16 99 05/30/20 13:08 62 16 115/68 97 05/30/20 12:53 97.0 F L 71 16 120/69 97 05/30/20 10:04 97.1 F L 79 16 114/70 99 Intake and Output 05/30/20 05/31/20 05/31/20 22:59 06:59 14:59 Output Total 300 550 Balance -300 -550 Output: Urine 300 550 Other: Voiding Method Indwelling Catheter # Voids 1 - Exam Lungs: bilateral: normal Chest: Normal S1, Normal S2 Extremities: Present: normal Abdomen: Present: normal appearance, soft. Absent: distention, tenderness Incision: Present: normal, dry, intact Uterus: Present: normal, firm - Labs Labs: Abnormal Lab Results - Last 24 Hours (Table) 05/30/20 05/31/20 Range/Units 10:13 07:10 WBC 11.6 H 11.7 H (3.8-10.6) k/uL RBC 3.43 L (3.80-5.40) m/uL Hgb 9.9 L D (11.4-16.0) gm/dL Hct 29.7 L (34.0-46.0) % Neutrophils # 8.0 H (1.3-7.7) k/uL
[2020-05-31] MEDS: SENNOSIDES-DOCUSATE SODIUM 1 EACH TAB PO SCH ×2 (08:59→20:12)
[2020-05-31] MEDS: LACTATED RINGERS 1,000 ML IV SCH (09:23)
[2020-05-31] MEDS: IBUPROFEN 600 MG TAB PO PRN ×2 (15:07→21:41)
[2020-05-31] MEDS: ACETAMINOPHEN TAB 325 MG TAB PO PRN (17:00)
[2020-06-01] MEDS: ACETAMINOPHEN TAB 325 MG TAB PO PRN (01:59)
[2020-06-01 02:59] VITALS: RESP 16
--- NOTE | 2020-06-01 07:26 | P.DS ---
Providers Date of admission: 05/30/20 09:54 Expected date of discharge: 06/01/20 Attending physician: Reggie Rosario Primary care physician: Stated None Hospital Course: Patient is doing very well post op day 2. She is involuting, voiding and tolerating her diet. She voices no complaints and is requesting discharge home today. Baby is somewhat jaundiced and may not be able to be discharged but if baby is able to home will plan to discharge her later today. Discharge instructions were thoroughly reviewed and all questions are answered for her prior to her discharge. Prescription for [place] and Motrin for it to the pharmacy. All the questions are answered for her at this time. On physical exam vital signs are stable and she is afebrile. Heart regular, lungs clear, extremities without pain. Abdomen is soft uterus is firm and her incision is clean dry and intact. She does relate that she is also had a bowel movement and is feeling very well. All questions are answered for her at this time. She is stable for discharge at this time. Assessment postop day 2. Plan discharged home follow up with me in 1 week Patient Condition at Discharge: Good Plan - Discharge Summary Discharge Rx Participant: No New Discharge Prescriptions: New Ibuprofen [Motrin] 600 mg PO Q6HR PRN #30 tab PRN Reason: Pain HYDROcodone/APAP 5-325MG [[place] 5-325] 1 tab PO Q4HR PRN #30 tab PRN Reason: Pain No Action Famotidine [Pepcid] 20 mg PO DAILY Pnv No.95/Ferrous Fum/Folic AC [ Multivitamin Tablet] 1 each PO DAILY Discharge Medication List Famotidine [Pepcid] 20 mg PO DAILY 05/03/20 [History] Pnv No.95/Ferrous Fum/Folic AC [ Multivitamin Tablet] 1 each PO DAILY 05/03/20 [History] HYDROcodone/APAP 5-325MG [[place] 5-325] 1 tab PO Q4HR PRN #30 tab 06/01/20 [Rx] Ibuprofen [Motrin] 600 mg PO Q6HR PRN #30 tab 06/01/20 [Rx] Follow up Appointment(s)/Referral(s): Reggie Rosario DO [Doctor of Osteopathic Medicine] - 1 Week Activity/Diet/Wound Care/Special Instructions: No heavy lifting, limited surgery driving, and pelvic rest. If any high temperatures, heavy bleeding, or severe pain call my office Discharge Disposition: HOME SELF-CARE
[2020-06-01] MEDS: IBUPROFEN 600 MG TAB PO PRN ×2 (08:20→16:01)
[2020-06-01] MEDS: SENNOSIDES-DOCUSATE SODIUM 1 EACH TAB PO SCH ×2 (10:05→21:33)
[2020-06-01 17:12] VITALS: BP 113/76; PULSE 76; TEMP 98.5
== END 2020-06-01 19:40 | disposition home or self-care (01) | DRG 788 ==
LOC: 4FBP 09:54
PROVIDERS: ADMIT Obstetrics & Gynecology; ATTEND Obstetrics & Gynecology
PROC: 10D00Z1 Extraction of Products of Conception, Low, Open Approach (ICD-10-PCS; principal; 2020-05-30 12:00)
DX: O34.211 Maternal care for low transverse scar from previous cesarean delivery (principal); O69.81X0 Labor and delivery complicated by cord around neck, without compression, not applicable or unspecified; O99.62 Diseases of the digestive system complicating childbirth; K21.9 Gastro-esophageal reflux disease without esophagitis; Z37.0 Single live birth; Z3A.39 39 weeks gestation of pregnancy; Z79.899 Other long term (current) drug therapy
CPT/HCPCS: 85025; 86850; 86900; 86901

== ENCOUNTER 2022-01-14 06:16 | Inpatient (IN) | payer OTHER ==
--- NOTE | 2022-01-13 18:03 | P.HPOB ---
History of Present Illness H&P Date: 01/13/22 Chief Complaint: repeat with tubal ligation 26 year old presents for repeat low transverse and tubal ligation. Review of Systems All systems: negative Constitutional: Denies chills, Denies fever Eyes: denies blurred vision, denies pain Ears, nose, mouth and throat: Denies headache, Denies sore throat Cardiovascular: Denies chest pain, Denies shortness of breath Respiratory: Denies cough Gastrointestinal: Denies abdominal pain, Denies diarrhea, Denies nausea, Denies vomiting Genitourinary: Denies dysuria, Denies hematuria Musculoskeletal: Denies myalgias Integumentary: Denies pruritus, Denies rash Neurological: Denies numbness, Denies weakness Psychiatric: Denies anxiety, Denies depression Endocrine: Denies fatigue, Denies weight change Past Medical History Past Medical History: No Reported History Additional Past Medical History / Comment(s): OB history: SHe has had one vaginal delivery and one . She has had care with id. O+, abs neg, Rub Imm, RPR NR, Hep B neg History of Any Multi-Drug Resistant Organisms: None Reported Past Surgical History: No Surgical Hx Reported Past Anesthesia/Blood Transfusion Reactions: No Reported Reaction Past Alcohol Use History: Occasional Past Drug Use History: Marijuana - Past Family History Mother History Unknown: Yes Medications and Allergies Home Medications Medication Instructions Recorded Confirmed Type Famotidine [Pepcid] 20 mg PO DAILY 05/03/20 12/19/21 History Pnv No.95/Ferrous Fum/Folic AC 1 each PO DAILY 05/03/20 12/19/21 History [ Multivitamin Tablet] Allergies Allergy/AdvReac Type Severity Reaction Status Date / Time No Known Allergies Allergy Verified 12/19/21 00:48 Exam Osteopathic Statement: *. No significant issues noted on an osteopathic structural exam other than those noted in the History and Physical/Consult. HEart: RRR Lugs: CTAB Abdomen: soft, nontender Extremeties: neg carolyn's Assessment and Plan (1) Previous section Status: Acute Code(s): Z98.891 - HISTORY OF UTERINE SCAR FROM PREVIOUS SURGERY SNOMED Code(s): 066607890 (2) Family planning Status: Acute Code(s): Z30.09 - ENCOUNTER FOR OTH GENERAL CNSL AND ADVICE ON CONTRACEPTION SNOMED Code(s): 552575473 Plan: 1. repeat low transverse with tubal ligation
[2022-01-14] MEDS ORDERED: CITRIC ACID-SODIUM CITRATE 15 ML CUP PO ONE (06:30)
[2022-01-14 06:57] LABS: Basophils # (A) 0.1 k/uL (0-0.2); Basophils % (A) 0 %; Eosinophils # (A) 0.2 k/uL (0-0.7); Eosinophils % (A) 1 %; HCT 36.2 % (34.0-46.0); HGB 11.5 gm/dL (11.4-16.0); Lymphocytes # (A) 3.6 k/uL (1.0-4.8); Lymphocytes % (A) 23 %; MCH 25.7 pg (25.0-35.0); MCHC 31.9 g/dL (31.0-37.0); MCV 80.5 fL (80.0-100.0); Mean Platelet Volume 9.1; Monocytes # (A) 0.6 k/uL (0-1.0); Monocytes % (A) 4 %; Neutrophils # (A) 11.1 k/uL (1.3-7.7); Neutrophils % (A) 70 %; Platelet Count 264 k/uL (150-450); Poikilocytosis Slight; RBC 4.49 m/uL (3.80-5.40); RDW 14.2 % (11.5-15.5); WBC 15.9 k/uL (3.8-10.6)
[2022-01-14] MEDS: LACTATED RINGERS 1,000 ML IV SCH ×2 (06:58→15:59)
[2022-01-14] MEDS ORDERED: ePHEDrine 50 MG/ML 1 ML VIAL ONE (07:59)
[2022-01-14] MEDS ORDERED: ONDANSETRON 4 MG/2 ML VIAL ONE (07:59)
[2022-01-14] MEDS ORDERED: KETOROLAC 15 MG/ML 1 ML VIAL ONE (07:59)
[2022-01-14] MEDS ORDERED: MORPHINE SULFATE (PF) 0.3 MG/0.3 ML SYR ONE (07:59)
[2022-01-14] MEDS ORDERED: diphenhydrAMINE 50 MG/ML 1 ML VIAL IVP PRN ×2 (09:06)
[2022-01-14] MEDS ORDERED: diphenhydrAMINE 50 MG CAP PO PRN (09:06)
[2022-01-14] MEDS ORDERED: ONDANSETRON 4 MG/2 ML VIAL IVP PRN (09:06)
[2022-01-14] MEDS ORDERED: SIMETHICONE 80 MG CHEWABLE PO PRN (09:06)
[2022-01-14] MEDS ORDERED: diphenhydrAMINE 25 MG CAP PO PRN (09:06)
[2022-01-14] MEDS ORDERED: NALOXONE 0.4 MG/ML 1 ML VIAL IV PRN (09:06)
[2022-01-14] MEDS ORDERED: ZOLPIDEM 5 MG TAB PO PRN (09:06)
[2022-01-14] MEDS ORDERED: LANOLIN CREAM 5 GM TUBE TOPICAL PRN (09:06)
[2022-01-14] MEDS ORDERED: METOCLOPRAMIDE 5 MG/ML 2 ML VIAL IVP PRN (09:06)
[2022-01-14] MEDS ORDERED: OXYTOCIN 30 UNITS/500 ML NS 30 UNIT in SALINE 1 500ML.BAG IV SCH (09:15)
[2022-01-14] MEDS: ACETAMINOPHEN TAB 500 MG TAB PO SCH ×2 (13:02→19:22)
[2022-01-14] MEDS: KETOROLAC 15 MG/ML 1 ML VIAL IVP SCH ×2 (15:57→23:41)
[2022-01-14] MEDS: SENNOSIDES-DOCUSATE SODIUM 1 EACH TAB PO SCH (19:23)
[2022-01-14 20:09] VITALS: RESP 16
[2022-01-15] MEDS: LACTATED RINGERS 1,000 ML IV SCH (05:59)
[2022-01-15] MEDS: ACETAMINOPHEN TAB 500 MG TAB PO SCH ×4 (06:31→21:00)
--- NOTE | 2022-01-15 07:36 | P.PN ---
Progress Note - Text Progress Note Date: 01/15/22 Postop day 1 from under spinal anesthesia with intrathecal morphine given for postop pain management. Patient is doing well. Pain is well controlled. On visual analog scale 2/10 No itching present No nausea or vomiting reported. No Headache or weakness and numbness in the legs. No complications from spinal anesthesia.
[2022-01-15 07:47] LABS: Basophils % (A) 0 %; Eosinophils # (A) 0.1 k/uL (0-0.7); Eosinophils % (A) 1 %; HCT 30.2 % (34.0-46.0); Hypochromasia Slight; Lymphocytes # (A) 2.4 k/uL (1.0-4.8); Lymphocytes % (A) 19 %; MCH 26.1 pg (25.0-35.0); MCHC 32.5 g/dL (31.0-37.0); MCV 80.3 fL (80.0-100.0); Mean Platelet Volume 9.3; Monocytes # (A) 0.5 k/uL (0-1.0); Monocytes % (A) 4 %; Neutrophils # (A) 9.1 k/uL (1.3-7.7); Neutrophils % (A) 73 %; Platelet Count 235 k/uL (150-450); Poikilocytosis Slight; RBC 3.76 m/uL (3.80-5.40); RDW 14.6 % (11.5-15.5); WBC 12.4 k/uL (3.8-10.6)
[2022-01-15 07:49] LABS: HGB 9.8 gm/dL (11.4-16.0)
--- NOTE | 2022-01-15 08:43 | P.OP ---
Date of Procedure: 01/15/22 Preoperative Diagnosis: 1. at 39 weeks 2. Previous section 3. Family planning Postoperative Diagnosis: 1. at 39 weeks 2. Previous section 3. Family planning Procedure(s) Performed: Repeat low transverse with tubal ligation Anesthesia: spinal Surgeon: Chica Jacobs Blow Pit Operator #1: Yuri Stern Estimated Blood Loss (ml): 180 IV fluids (ml): 500 Urine output (ml): 50 Pathology: other (Segments of bilateral fallopian tubes) Condition: stable Disposition: floor Operative Findings: Total uterus, tubes, ovaries. Viable male, Apgars 8, 9, weight 7 lbs. 8 oz. Description of Procedure: Patient was taken to the operating room where spinal anesthesia was found be adequate. She was prepped and draped in normal sterile fashion in dorsal supine position with a leftward tilt. Pfannenstiel skin incision was made the scalpel and carried through to the underlying layer of fascia with the scalpel. Fascia was incised in midline and carried bilaterally with the Floyd scissors. The superior aspect of the fascial incision was grasped with Mickey clamps elevated and the underlying rectus muscles dissected off with the Floyd's. Attention was then turned to inferior aspect of same incision which in a similar fashion was grasped tented up and the underlying rectus muscles dissected off with the Floyd's. The rectus muscles were the midline and the peritoneum was identified tented up and entered sharply with the scalpel. The incision was extended superiorly and inferiorly with good visualization of the bladder. The bladder blade was inserted and the vesicouterine peritoneum was incised the Metzenbaums then carried bilaterally and bladder flap created digitally. A low transverse incision was then made on the uterus with the scalpel. This was carried bilaterally and digital manner. 's head delivered atraumatically, nose and mouth bulb suctioned, cord clamped and cut, handed off to waiting nurses. Apgars 8,9, weight 7 lbs. 8 oz. Placenta delivered manually, intact with three-vessel cord. The uterus is exteriorized and cleared of all clots and debris. The uterine incision was closed with 0 Vicryl in a running locked fashion. Second layer of the same sutures used in imbricating fashion to obtain excellent hemostasis. Bladder flap was then reapproximated using 2-0 Vicryl in a running fashion. Both ovaries and tubes appeared normal. The right fallopian tube was grasped with a hemostat and a window was made in the mesosalpinx with the Bovie. This fallopian tube was doubly ligated and a segment was removed. The pedicles were cauterized with the Bovie. The left fallopian tube was grasped with a hemostat and a window was made in the mesosalpinx with the Bovie. This fallopian tube was doubly ligated and a segment was removed. The pedicles were cauterized with the Bovie. The uterus was placed back into the abdomen. The peritoneum was reapproximated using 2-0 Vicryl in a running fashion. The muscles were reapproximated using 2-0 Vicryl in interrupted fashion. The fascia was reapproximated using 0 Vicryl in a running fashion. The subcutaneous tissues closed with 3-0 Vicryl running fashion. The skin was closed lexie. Patient tolerated the procedure well, sponge and instrument counts were correct times 2 and she was taken to the recovery room in stable condition.
--- NOTE | 2022-01-15 08:45 | P.PNOBGPC ---
Subjective - Subjective Principal diagnosis: Status post repeat low transverse postop day #1 Interval history: Patient seen and examined at bedside. She is doing very well. Her pain is controlled. Denies nausea, vomiting, chest pain, shortness of breath or any calf pain. Patient reports: Reports appetite normal, Reports voiding normally, Reports pain well controlled, Reports ambulating normally [place]: doing well Objective - Vital Signs Latest vital signs: Vital Signs Temp Pulse Resp BP Pulse Ox 01/15/22 04:00 97.0 F L 66 16 111/76 01/15/22 00:00 97.0 F L 60 16 97/66 01/14/22 20:00 97.8 F 88 16 113/75 01/14/22 16:00 98.2 F 77 14 115/64 01/14/22 12:00 98.0 F 90 16 111/70 99 01/14/22 10:41 96.6 F L 78 16 107/69 100 01/14/22 10:11 70 16 103/63 100 01/14/22 09:41 70 16 98/56 100 01/14/22 09:26 86 16 99 01/14/22 09:11 77 16 106/58 98 01/14/22 08:56 103 H 16 122/59 98 Intake and Output 01/14/22 01/15/22 01/15/22 22:59 06:59 14:59 Output Total 600 Balance -600 Output: Urine 600 Other: # Voids 2 - Exam Lungs: bilateral: normal Chest: Normal S1, Normal S2 Extremities: Present: normal Abdomen: Present: normal appearance, soft. Absent: distention, tenderness Incision: Present: normal, dry, intact Uterus: Present: normal, firm Comments: There is little ecchymosis on the top of identified and the anterior portion. - Labs Labs: Abnormal Lab Results - Last 24 Hours (Table) 01/15/22 Range/Units 07:24 WBC 12.4 H (3.8-10.6) k/uL RBC 3.76 L (3.80-5.40) m/uL Hgb 9.8 L D (11.4-16.0) gm/dL Hct 30.2 L (34.0-46.0) % Neutrophils # 9.1 H (1.3-7.7) k/uL Assessment and Plan (1) Previous section Current Visit: No Status: Resolved Code(s): Z98.891 - HISTORY OF UTERINE SCAR FROM PREVIOUS SURGERY SNOMED Code(s): 099658037 (2) Family planning Current Visit: No Status: Resolved Code(s): Z30.09 - ENCOUNTER FOR OT GENERAL CNSL AND ADVICE ON CONTRACEPTION SNOMED Code(s): 393268034 (3) Status post repeat low transverse section Current Visit: Yes Status: Acute Code(s): Z98.891 - HISTORY OF UTERINE SCAR FROM PREVIOUS SURGERY SNOMED Code(s): 135503126 (4) Status post tubal ligation at time of delivery, current hosp Current Visit: Yes Status: Acute Code(s): O80 - ENCOUNTER FOR FULL-TERM UNCOMPLICATED DELIVERY; Z30.2 - ENCOUNTER FOR STERILIZATION SNOMED Code(s): 515000770 Plan: 1. Increase ambulation 2. By mouth pain medication
[2022-01-15] MEDS: IBUPROFEN 600 MG TAB PO SCH ×3 (09:31→23:13)
[2022-01-15] MEDS: SENNOSIDES-DOCUSATE SODIUM 1 EACH TAB PO SCH ×2 (09:36→21:01)
[2022-01-16] MEDS: ACETAMINOPHEN TAB 500 MG TAB PO SCH (05:11)
--- NOTE | 2022-01-16 07:41 | P.DS ---
Providers Date of admission: 01/14/22 06:16 Expected date of discharge: 01/16/22 Attending physician: Chica Jacobs Primary care physician: Stated None - Discharge Diagnosis(es) (1) Previous section Current Visit: No Status: Resolved (2) Family planning Current Visit: No Status: Resolved (3) Status post repeat low transverse section Current Visit: Yes Status: Acute (4) Status post tubal ligation at time of delivery, current hosp Current Visit: Yes Status: Acute Hospital Course: Patient presented for repeat low transverse and tubal ligation. She underwent this procedure without complication. Postoperative course was uncomplicated. She denies nausea, vomiting, chest pain, shortness of breath or any calf pain. Her incision is clean, dry, intact. I remove the lexie in place and Steri-Strips. She is tolerating regular diet and passing flatus. Pain is well-controlled. She will be discharged home postoperative day #2 in stable condition to follow-up with me in one week. Plan - Discharge Summary New Discharge Prescriptions: New oxyCODONE HCL [OxyIR] 5 mg PO Q6HR PRN #12 tab PRN Reason: Pain Ibuprofen [Motrin] 600 mg PO Q6HR #40 tab No Action Famotidine [Pepcid] 20 mg PO DAILY Pnv No.95/Ferrous Fum/Folic AC [ Multivitamin Tablet] 1 each PO DAILY Discharge Medication List Famotidine [Pepcid] 20 mg PO DAILY 05/03/20 [History] Pnv No.95/Ferrous Fum/Folic AC [ Multivitamin Tablet] 1 each PO DAILY 05/03/20 [History] Ibuprofen [Motrin] 600 mg PO Q6HR #40 tab 01/16/22 [Rx] oxyCODONE HCL [OxyIR] 5 mg PO Q6HR PRN #12 tab 01/16/22 [Rx] Follow up Appointment(s)/Referral(s): Chica Jacobs DO [Doctor of Osteopathic Medicine] - 02/25/22 3:45 pm (c/s post op appt-01/21/2022-1:30pm) Discharge Disposition: HOME SELF-CARE
[2022-01-16] MEDS: IBUPROFEN 600 MG TAB PO SCH (07:44)
[2022-01-16 08:30] VITALS: BP 128/87; PULSE 85; TEMP 97.8
== END 2022-01-16 10:45 | disposition home or self-care (01) | DRG 785 ==
LOC: 4FBP 06:16
PROVIDERS: ADMIT Obstetrics & Gynecology; ATTEND Obstetrics & Gynecology
PROC: 0UB70ZZ Excision of Bilateral Fallopian Tubes, Open Approach (ICD-10-PCS; 2022-01-14)
PROC: 10D00Z1 Extraction of Products of Conception, Low, Open Approach (ICD-10-PCS; principal; 2022-01-14 08:00)
DX: O34.211 Maternal care for low transverse scar from previous cesarean delivery (principal); Z30.2 Encounter for sterilization; Z37.0 Single live birth; Z3A.39 39 weeks gestation of pregnancy
CPT/HCPCS: 85025; 86850; 86900; 86901; 88302

== ENCOUNTER 2022-03-30 23:38 | Emergency (ER) | payer OTHER ==
[2022-03-31 03:30] LABS: Basophils % (A) 0 %; Eosinophils # (A) 0.1 k/uL (0-0.7); Eosinophils % (A) 1 %; HGB 10.9 gm/dL (11.4-16.0); Lymphocytes # (A) 2.7 k/uL (1.0-4.8); Lymphocytes % (A) 40 %; MCH 25.4 pg (25.0-35.0); MCHC 32.1 g/dL (31.0-37.0); Mean Platelet Volume 7.1; Monocytes # (A) 0.4 k/uL (0-1.0); Monocytes % (A) 5 %; Neutrophils # (A) 3.5 k/uL (1.3-7.7); Neutrophils % (A) 52 %; Platelet Count 261 k/uL (150-450); RDW 15.1 % (11.5-15.5); WBC 6.8 k/uL (3.8-10.6)
[2022-03-31 03:37] LABS: Appearance,Urine Clear (Clear); Bilirubin,Urine Negative (Negative); Blood,Urine Negative (Negative); Budding Yeast,Urine Rare /hpf; Color,Urine Light Yellow; Glucose,Urine (UA) Negative (Negative); Ketones,Urine Negative (Negative); Leukocyte Esterase,Urine Small (Negative); Mucus,Urine Rare /hpf; Nitrite,Urine Negative (Negative); PH, Urine 6.5 (5.0-8.0); Protein,Urine Negative (Negative); RBC,Urine 1 /hpf (0-5); Specific Gravity,Urine 1.012 (1.001-1.035); Squamous Epithelial Cell,Urine 3 /hpf (0-4); Urobilinogen,Urine <2.0 mg/dL (<2.0); WBC,Urine 2 /hpf (0-5)
[2022-03-31 03:48] LABS: ALT 161 U/L (4-34); AST 64 U/L (14-36); African American GFR (CKD) >90 (>60 ml/min/1.73 sqM); Albumin 4.1 g/dL (3.5-5.0); Alkaline Phosphatase 161 U/L (38-126); Amylase 65 U/L (30-110); Anion Gap 8 mmol/L; Blood Urea Nitrogen 8 mg/dL (7-17); Calcium 9.1 mg/dL (8.4-10.2); Carbon Dioxide 24 mmol/L (22-30); Chloride 106 mmol/L (98-107); Glucose 88 mg/dL (74-99); Lipase 64 U/L (23-300); Non-African American GFR(CKD) >90 (>60 ml/min/1.73 sqM); Potassium 3.5 mmol/L (3.5-5.1); Sodium 138 mmol/L (137-145); Total Bilirubin 0.3 mg/dL (0.2-1.3)
[2022-03-31] MEDS ORDERED: SULFAMETHOX-TMP 800-160MG 1 EACH TAB PO STA (03:56)
[2022-03-31] MEDS ORDERED: MORPHINE SULFATE 4 MG/ML SYRINGE IVP STA (03:56)
--- NOTE | 2022-03-31 04:17 | ED ---
Recheck HPI - General Chief Complaint: Abdominal Pain Stated Complaint: Post-Op Infection Time Seen by Provider: 03/31/22 02:06 Source: patient Mode of arrival: ambulatory Limitations: no limitations - Related Data Home Medications Medication Instructions Recorded Confirmed Famotidine [Pepcid] 20 mg PO DAILY 05/03/20 01/14/22 Pnv No.95/Ferrous Fum/Folic AC 1 each PO DAILY 05/03/20 01/14/22 [ Multivitamin Tablet] Previous Rx's Medication Instructions Recorded Ibuprofen [Motrin] 600 mg PO Q6HR #40 tab 01/16/22 oxyCODONE HCL [OxyIR] 5 mg PO Q6HR PRN #12 tab 01/16/22 Cephalexin [Keflex] 500 mg PO Q6HR #40 cap 03/31/22 Mupirocin Calcium 2% Cream 1 applic TOPICAL TID #15 gm 03/31/22 [Bactroban 2% Cream] Sulfamethox-Tmp 800-160Mg [Bactrim 2 tab PO BID #40 tab 03/31/22 DS 800-160 mg] Allergies Allergy/AdvReac Type Severity Reaction Status Date / Time adhesive tape AdvReac Intermediate Rash/Hives Verified 03/30/22 23:45 Review of Systems ROS Statement: Those systems with pertinent positive or pertinent negative responses have been documented in the HPI. ROS Other: All systems not noted in ROS Statement are negative. Past Medical History Past Medical History: No Reported History Additional Past Medical History / Comment(s): OB history: SHe has had one vaginal delivery and one . She has had care with ma. O+, abs neg, Rub Imm, RPR NR, Hep B neg. gallstones History of Any Multi-Drug Resistant Organisms: None Reported Past Surgical History: Section Past Anesthesia/Blood Transfusion Reactions: No Reported Reaction Past Psychological History: No Psychological Hx Reported Smoking Status: Never smoker Past Alcohol Use History: None Reported Past Drug Use History: None Reported - Past Family History Mother History Unknown: Yes Family Medical History: No Reported History General Exam Limitations: no limitations Course Vital Signs 03/30/22 23:41 Temperature 98.2 F Pulse Rate 76 Respiratory 22 Rate Blood Pressure 128/67 O2 Sat by Pulse 100 Oximetry Medical Decision Making - Lab Data Result diagrams: 03/31/22 02:22 03/31/22 02:22 Lab Results 03/31/22 03/31/22 03/31/22 Range/Units 02:22 02:22 02:22 WBC 6.8 (3.8-10.6) k/uL RBC 4.30 (3.80-5.40) m/uL Hgb 10.9 L (11.4-16.0) gm/dL Hct 34.0 (34.0-46.0) % MCV 79.0 L (80.0-100.0) fL MCH 25.4 (25.0-35.0) pg MCHC 32.1 (31.0-37.0) g/dL RDW 15.1 (11.5-15.5) % Plt Count 261 (150-450) k/uL MPV 7.1 Neutrophils % 52 % Lymphocytes % 40 % Monocytes % 5 % Eosinophils % 1 % Basophils % 0 % Neutrophils # 3.5 (1.3-7.7) k/uL Lymphocytes # 2.7 (1.0-4.8) k/uL Monocytes # 0.4 (0-1.0) k/uL Eosinophils # 0.1 (0-0.7) k/uL Basophils # 0.0 (0-0.2) k/uL Sodium 138 (137-145) mmol/L Potassium 3.5 (3.5-5.1) mmol/L Chloride 106 (98-107) mmol/L Carbon Dioxide 24 (22-30) mmol/L Anion Gap 8 mmol/L BUN 8 (7-17) mg/dL Creatinine 0.63 (0.52-1.04) mg/dL Est GFR (CKD-EPI)AfAm >90 (>60 ml/min/1.73 sqM) Est GFR (CKD-EPI)NonAf >90 (>60 ml/min/1.73 sqM) Glucose 88 (74-99) mg/dL Plasma Lactic Acid Omer 0.8 (0.7-2.0) mmol/L Calcium 9.1 (8.4-10.2) mg/dL Total Bilirubin 0.3 (0.2-1.3) mg/dL AST 64 H (14-36) U/L ALT 161 H (4-34) U/L Alkaline Phosphatase 161 H (38-126) U/L Total Protein 7.0 (6.3-8.2) g/dL Albumin 4.1 (3.5-5.0) g/dL Amylase 65 (30-110) U/L Lipase 64 (23-300) U/L Urine Color Urine Appearance (Clear) Urine pH (5.0-8.0) Ur Specific [place] (1.001-1.035) Urine Protein (Negative) Urine Glucose (UA) (Negative) Urine Ketones (Negative) Urine Blood (Negative) Urine Nitrite (Negative) Urine Bilirubin (Negative) Urine Urobilinogen (<2.0) mg/dL Ur Leukocyte Esterase (Negative) Urine RBC (0-5) /hpf Urine WBC (0-5) /hpf Ur Squamous Epith Cells (0-4) /hpf Urine Mucus (None) /hpf Urine Yeast (Budding) (None) /hpf 03/31/22 Range/Units 02:47 WBC (3.8-10.6) k/uL RBC (3.80-5.40) m/uL Hgb (11.4-16.0) gm/dL Hct (34.0-46.0) % MCV (80.0-100.0) fL MCH (25.0-35.0) pg MCHC (31.0-37.0) g/dL RDW (11.5-15.5) % Plt Count (150-450) k/uL MPV Neutrophils % % Lymphocytes % % Monocytes % % Eosinophils % % Basophils % % Neutrophils # (1.3-7.7) k/uL Lymphocytes # (1.0-4.8) k/uL Monocytes # (0-1.0) k/uL Eosinophils # (0-0.7) k/uL Basophils # (0-0.2) k/uL Sodium (137-145) mmol/L Potassium (3.5-5.1) mmol/L Chloride (98-107) mmol/L Carbon Dioxide (22-30) mmol/L Anion Gap mmol/L BUN (7-17) mg/dL Creatinine (0.52-1.04) mg/dL Est GFR (CKD-EPI)AfAm (>60 ml/min/1.73 sqM) Est GFR (CKD-EPI)NonAf (>60 ml/min/1.73 sqM) Glucose (74-99) mg/dL Plasma Lactic Acid Omer (0.7-2.0) mmol/L Calcium (8.4-10.2) mg/dL Total Bilirubin (0.2-1.3) mg/dL AST (14-36) U/L ALT (4-34) U/L Alkaline Phosphatase (38-126) U/L Total Protein (6.3-8.2) g/dL Albumin (3.5-5.0) g/dL Amylase (30-110) U/L Lipase (23-300) U/L Urine Color Light Yellow Urine Appearance Clear (Clear) Urine pH 6.5 (5.0-8.0) Ur Specific [place] 1.012 (1.001-1.035) Urine Protein Negative (Negative) Urine Glucose (UA) Negative (Negative) Urine Ketones Negative (Negative) Urine Blood Negative (Negative) Urine Nitrite Negative (Negative) Urine Bilirubin Negative (Negative) Urine Urobilinogen <2.0 (<2.0) mg/dL Ur Leukocyte Esterase Small H (Negative) Urine RBC 1 (0-5) /hpf Urine WBC 2 (0-5) /hpf Ur Squamous Epith Cells 3 (0-4) /hpf Urine Mucus Rare H (None) /hpf Urine Yeast (Budding) Rare H (None) /hpf Disposition Clinical Impression: Postoperative wound infection Disposition: HOME SELF-CARE Condition: Good Instructions (If sedation given, give patient instructions): Acute Wounds (ED) Prescriptions: Sulfamethox-Tmp 800-160Mg [Bactrim DS 800-160 mg] 2 tab PO BID #40 tab Mupirocin Calcium 2% Cream [Bactroban 2% Cream] 1 applic TOPICAL TID #15 gm Cephalexin [Keflex] 500 mg PO Q6HR #40 cap Is patient prescribed a controlled substance at d/c from ED?: No Referrals: None,Stated [Primary Care Provider] - 1-2 days
--- NOTE | 2022-03-31 04:27 | CT ---
EXAMINATION TYPE: CT abdomen pelvis wo con DATE OF EXAM: 03/31/2022 COMPARISON: 09/07/2019 HISTORY: POST OP CHOLECYSTECTOMY INFECTION, SURGERY [address] DLP: 462.9 mGycm Automated exposure control for dose reduction was used. Images obtained from the diaphragm to the floor the pelvis with no contrast. The lung bases are clear of consolidation. No pleural effusion. Heart size is normal. No pericardial effusion. There is some mild linear density at the right posterior-lateral lung base. Liver spleen and stomach pancreas appear intact. There are clips from cholecystectomy. The bile ducts are not dilated. There is no adrenal mass. Kidneys have normal size. No hydronephrosis . Ureters are not dilated. No retroperitoneal adenopathy. Appendix is medial and appears normal. Bladder distends smoothly. No inguinal hernia. No free fluid in the pelvis. Uterus is anteverted. No pelvic mass. There is no mesenteric edema. No ascites or free air. No bowel obstruction. The lumbar spine is intac t. No compression fracture. Posterior element are intact. The bony pelvis is intact. Hip joints are i ntact. IMPRESSION: Negative CT scan abdomen and pelvis. Normal appendix. There is some new minimal pleural reaction and atelectasis right lung base compared to old exam.
[2022-03-31 04:46] VITALS: BP 130/65; PULSE 72; RESP 18; TEMP 98
== END 2022-03-31 04:46 | disposition home or self-care (01) ==
LOC: EC 23:38
DX: T81.49XA Infection following a procedure, other surgical site, initial encounter (principal); Z91.09 Other allergy status, other than to drugs and biological substances
CPT/HCPCS: 36415; 80053; 82150; 83605; 83690; 85025; 81001; 87040; 74176; 99284; 96365; 96375; J2270; J0696; 96374

== ENCOUNTER 2022-04-04 16:56 | Emergency (ER) | payer OTHER ==
--- NOTE | 2022-04-04 17:27 | ED ---
General Adult HPI - General Chief complaint: Fever Stated complaint: fever post surgery Time Seen by Provider: 04/04/22 17:09 Source: patient, RN notes reviewed, old records reviewed Mode of arrival: ambulatory Limitations: no limitations - History of Present Illness Initial comments: Patient is a pleasant 26-year-old female presents the emergency room with concerns regarding tachycardia and fevers. She had a cholecystectomy completed at [facility] on March 29 (5-6 days ago). At that time she had a approximately 24-hour hospital stay and was discharged home. On the she presented to this emergency room with complaints of redness and drainage from her right lower quadrant incision along with fevers. She was placed on antibiotics of Bactrim and Keflex which she has been taking as prescribed unfortunately she continued to use to have fevers and tachycardia along with some mild nausea without emesis. She reports that the redness to her right lower quadrant incision has improved some. She states that she was unable to obtain the topical antibiotic that was prescribed for her at the emergency room due to cost but has been taking the antibiotics as prescribed over the last 3 days. She does report some pain in her right upper quadrant that is mild and been persisting since surgery; that the pain is unchanged and not severe. She denies any chest pain high-grade fevers above 101, chest pain, shortness of breath, cough, abdominal pain that is diffuse, diaphoresis or lethargy. She denies any other significant past medical history. - Related Data Home Medications Medication Instructions Recorded Confirmed Ibuprofen [Motrin] 600 mg PO Q6HR PRN 04/04/22 04/04/22 Previous Rx's Medication Instructions Recorded Cephalexin [Keflex] 500 mg PO Q6HR #40 cap 03/31/22 Mupirocin Calcium 2% Cream 1 applic TOPICAL TID #15 gm 03/31/22 [Bactroban 2% Cream] Sulfamethox-Tmp 800-160Mg [Bactrim 2 tab PO BID #40 tab 03/31/22 DS 800-160 mg] Allergies Allergy/AdvReac Type Severity Reaction Status Date / Time adhesive tape AdvReac Intermediate Rash/Hives Verified 04/04/22 17:07 Review of Systems ROS Statement: Those systems with pertinent positive or pertinent negative responses have been documented in the HPI. ROS Other: All systems not noted in ROS Statement are negative. Past Medical History Past Medical History: No Reported History Additional Past Medical History / Comment(s): OB history: SHe has had one vaginal delivery and one . She has had care with me. O+, abs neg, Rub Imm, RPR NR, Hep B neg. gallstones History of Any Multi-Drug Resistant Organisms: None Reported Past Surgical History: Section, Cholecystectomy Past Anesthesia/Blood Transfusion Reactions: No Reported Reaction Past Psychological History: No Psychological Hx Reported Smoking Status: Never smoker Past Alcohol Use History: None Reported Past Drug Use History: None Reported - Past Family History Mother History Unknown: Yes Family Medical History: No Reported History General Exam Limitations: no limitations General appearance: alert, in no apparent distress Head exam: Present: atraumatic, normocephalic, normal inspection Eye exam: Present: normal appearance, PERRL, EOMI. Absent: scleral icterus, conjunctival injection, periorbital swelling ENT exam: Present: normal exam, mucous membranes moist Neck exam: Present: normal inspection. Absent: tenderness, meningismus, lymphadenopathy Respiratory exam: Present: normal lung sounds bilaterally. Absent: respiratory distress, wheezes, rales, rhonchi, stridor Cardiovascular Exam: Present: normal rhythm, tachycardia, normal heart sounds. Absent: systolic murmur, diastolic murmur, rubs, gallop GI/Abdominal exam: Present: soft, tenderness (Mild right upper quadrant). Absent: distended, organomegaly, mass Rectal exam: Present: deferred Extremities exam: Present: normal inspection, full ROM, normal capillary refill. Absent: tenderness, pedal edema, joint swelling, calf tenderness Back exam: Present: normal inspection Neurological exam: Present: alert, oriented X3, CN II-XII intact Psychiatric exam: Present: normal affect, normal mood Skin exam: Present: other (Laparoscopic incisions 4 to the abdomen noted. Right lower quadrant incision with mild erythema and no drainage remaining incisions are well approximated without significant erythema. All incisions are closed with surgical glue and do not have drainage.) Course Vital Signs 04/04/22 04/04/22 04/04/22 17:02 19:10 19:46 Temperature 100.2 F H 99.5 F 98.1 F Pulse Rate 135 H 98 91 Respiratory 22 17 18 Rate Blood Pressure 134/92 107/69 96/68 O2 Sat by Pulse 98 100 100 Oximetry Medical Decision Making - Medical Decision Making CT of the abdomen was completed during her emergency room visit on 03/31/22 at this time given no changes in abdominal symptoms will defer repeating computed tomography scan at this time. Will check CBC, lactic acid CMP along with UA. Advised given adherents to antibiotic therapy and tachycardia and elevated temperature in the setting of failed outpatient antibiotics will likely need admission for IV antibiotics. Will draw blood cultures. Once blood cultures are drawn will give dose of IV Unasyn. Mild leukocytosis on CBC. Alk phos and liver enzymes trending down. Lactic acid normal. Blood cultures pending however in the setting of normal lactic acid and WBC count doubt positive blood cultures. Dose of IV Unasyn and 1 L of IV fluids given with improvement of symptoms heart rate controlled at 91 and now afebrile. Patient reports feeling much better and willing to be discharged home to complete her current prescriptions of antibiotics consisting of Bactrim and Keflex. She is still due for her follow-up with her surgeon in a few weeks as well. Case discussed with Dr. Saldaña. - Lab Data Result diagrams: 04/04/22 17:55 04/04/22 17:55 Lab Results 04/04/22 04/04/22 04/04/22 Range/Units 17:55 17:55 17:55 WBC 7.7 (3.8-10.6) k/uL RBC 4.66 (3.80-5.40) m/uL Hgb 11.7 (11.4-16.0) gm/dL Hct 36.2 (34.0-46.0) % MCV 77.6 L (80.0-100.0) fL MCH 25.1 (25.0-35.0) pg MCHC 32.3 (31.0-37.0) g/dL RDW 14.9 (11.5-15.5) % Plt Count 277 (150-450) k/uL MPV 7.0 Neutrophils % 86 % Lymphocytes % 6 % Monocytes % 4 % Eosinophils % 2 % Basophils % 0 % Neutrophils # 6.6 (1.3-7.7) k/uL Lymphocytes # 0.4 L (1.0-4.8) k/uL Monocytes # 0.3 (0-1.0) k/uL Eosinophils # 0.2 (0-0.7) k/uL Basophils # 0.0 (0-0.2) k/uL Microcytosis Slight Sodium 134 L (137-145) mmol/L Potassium 4.6 (3.5-5.1) mmol/L Chloride 104 (98-107) mmol/L Carbon Dioxide 18 L (22-30) mmol/L Anion Gap 12 mmol/L BUN 14 (7-17) mg/dL Creatinine 0.78 (0.52-1.04) mg/dL Est GFR (CKD-EPI)AfAm >90 (>60 ml/min/1.73 sqM) Est GFR (CKD-EPI)NonAf >90 (>60 ml/min/1.73 sqM) Glucose 101 H (74-99) mg/dL Plasma Lactic Acid Omer 1.3 (0.7-2.0) mmol/L Calcium 9.2 (8.4-10.2) mg/dL Total Bilirubin 0.6 (0.2-1.3) mg/dL AST 33 (14-36) U/L ALT 38 H (4-34) U/L Alkaline Phosphatase 140 H (38-126) U/L Total Protein 7.8 (6.3-8.2) g/dL Albumin 4.5 (3.5-5.0) g/dL Disposition Clinical Impression: Postoperative wound infection Disposition: HOME SELF-CARE Condition: Stable Instructions (If sedation given, give patient instructions): Fever in Adults (ED) Additional Instructions: Please complete Keflex and Bactrim antibiotic regimens as previously prescribed. Please continue to monitor surgical incision sites. Continue to have good fluid intake avoiding caffeinated products. Please follow-up with your surgeon per your postoperative follow-up instructions. Please follow-up with your primary care provider soon. If any worsening of abdominal pain, nausea vomiting, fevers, chills, or recurrence of tachycardia please return to the emergency room. Please return to the Emergency Department if symptoms worsen or any other concerns. Is patient prescribed a controlled substance at d/c from ED?: No Referrals: None,Stated [Primary Care Provider] - 1-2 days Time of Disposition: 20:04
[2022-04-04] MEDS ORDERED: AMPICILLIN-SULBACTAM 3 GM in SODIUM CHLORIDE 0.9% 100 ML IVPB STA (17:54)
[2022-04-04] MEDS ORDERED: SODIUM CHLORIDE 0.9% 1,000 ML IV STA (17:55)
[2022-04-04 18:08] LABS: Basophils % (A) 0 %; Eosinophils # (A) 0.2 k/uL (0-0.7); Eosinophils % (A) 2 %; HCT 36.2 % (34.0-46.0); HGB 11.7 gm/dL (11.4-16.0); Lymphocytes # (A) 0.4 k/uL (1.0-4.8); Lymphocytes % (A) 6 %; MCH 25.1 pg (25.0-35.0); MCHC 32.3 g/dL (31.0-37.0); MCV 77.6 fL (80.0-100.0); Microcytosis Slight; Monocytes # (A) 0.3 k/uL (0-1.0); Monocytes % (A) 4 %; Neutrophils # (A) 6.6 k/uL (1.3-7.7); Neutrophils % (A) 86 %; Platelet Count 277 k/uL (150-450); RBC 4.66 m/uL (3.80-5.40); RDW 14.9 % (11.5-15.5); WBC 7.7 k/uL (3.8-10.6)
[2022-04-04 18:18] LABS: ALT 38 U/L (4-34); AST 33 U/L (14-36); African American GFR (CKD) >90 (>60 ml/min/1.73 sqM); Albumin 4.5 g/dL (3.5-5.0); Alkaline Phosphatase 140 U/L (38-126); Anion Gap 12 mmol/L; Blood Urea Nitrogen 14 mg/dL (7-17); Calcium 9.2 mg/dL (8.4-10.2); Carbon Dioxide 18 mmol/L (22-30); Chloride 104 mmol/L (98-107); Glucose 101 mg/dL (74-99); Non-African American GFR(CKD) >90 (>60 ml/min/1.73 sqM); Potassium 4.6 mmol/L (3.5-5.1); Sodium 134 mmol/L (137-145); Total Bilirubin 0.6 mg/dL (0.2-1.3); Total Protein 7.8 g/dL (6.3-8.2)
[2022-04-04 20:33] VITALS: BP 106/71; PULSE 96; RESP 16; TEMP 97.8
== END 2022-04-04 20:33 | disposition home or self-care (01) ==
LOC: EC 16:56
DX: T81.43XA Infection following a procedure, organ and space surgical site, initial encounter (principal); Z88.8 Allergy status to other drugs, medicaments and biological substances
CPT/HCPCS: 36415; 80053; 83605; 85025; 87040; 99284; 96365; 96361 ×8; J0295

== ENCOUNTER 2022-04-05 05:41 | Emergency (ER) | payer OTHER ==
[2022-04-05 05:47] VITALS: RESP 18
[2022-04-05] MEDS ORDERED: ACETAMINOPHEN TAB 500 MG TAB PO STA (06:23)
[2022-04-05] MEDS ORDERED: SODIUM CHLORIDE 0.9% 500 ML 500 ML IV ONE (06:23)
[2022-04-05] MEDS ORDERED: SODIUM CHLORIDE 0.9% 1,000 ML IV ONE (06:23)
--- NOTE | 2022-04-05 06:48 | ED ---
Fever HPI - General Chief Complaint: Fever Stated Complaint: fever Time Seen by Provider: 04/05/22 06:06 Source: patient, RN notes reviewed Mode of arrival: ambulatory Limitations: no limitations - History of Present Illness Initial Comments: This a 26-year-old female presents emergency Department with chief complaint of fever. Patient states that she only postop cholecystectomy a [facility]. Patient states that she initially had some redness and drainage from one of her lower incision sites. Patient was placed on Bactrim and Keflex. Patient states is greatly improved. States she is feeling well until she developed a fever yesterday. Patient states she feels nauseated, dizzy, and achy diffusely. Denies any significant cough or cold like symptoms she does feel mildly constipated though she was on pain medications. She has no localized abdominal pain. Denies any chest pain or sore throat. - Related Data Home Medications Medication Instructions Recorded Confirmed Ibuprofen [Motrin] 600 mg PO Q6HR PRN 04/04/22 04/05/22 Previous Rx's Medication Instructions Recorded Cephalexin [Keflex] 500 mg PO Q6HR #40 cap 03/31/22 Sulfamethox-Tmp 800-160Mg [Bactrim 2 tab PO BID #40 tab 03/31/22 DS 800-160 mg] Allergies Allergy/AdvReac Type Severity Reaction Status Date / Time adhesive tape Allergy Intermediate Rash/Hives Verified 04/05/22 09:46 Review of Systems ROS Statement: Those systems with pertinent positive or pertinent negative responses have been documented in the HPI. ROS Other: All systems not noted in ROS Statement are negative. Past Medical History Past Medical History: No Reported History Additional Past Medical History / Comment(s): OB history: SHe has had one vaginal delivery and one . She has had care with [place]. O+, abs neg, Rub Imm, RPR NR, Hep B neg. gallstones History of Any Multi-Drug Resistant Organisms: None Reported Past Surgical History: Section, Cholecystectomy Past Anesthesia/Blood Transfusion Reactions: No Reported Reaction Past Psychological History: No Psychological Hx Reported Smoking Status: Never smoker Past Alcohol Use History: None Reported Past Drug Use History: None Reported - Past Family History Mother History Unknown: Yes Family Medical History: No Reported History General Exam Limitations: no limitations General appearance: alert, in no apparent distress Head exam: Present: atraumatic, normocephalic, normal inspection Eye exam: Present: normal appearance, PERRL, EOMI. Absent: scleral icterus, conjunctival injection, periorbital swelling ENT exam: Present: normal exam, normal oropharynx, mucous membranes moist Neck exam: Present: normal inspection, full ROM. Absent: tenderness, meningismus, lymphadenopathy Respiratory exam: Present: normal lung sounds bilaterally. Absent: respiratory distress, wheezes, rales, rhonchi, stridor Cardiovascular Exam: Present: normal rhythm, tachycardia, normal heart sounds. Absent: systolic murmur, diastolic murmur, rubs, gallop, clicks GI/Abdominal exam: Present: soft, normal bowel sounds, other (This is an sites well-healed, no erythema). Absent: distended, tenderness, guarding, rebound, rigid Back exam: Absent: CVA tenderness (R), CVA tenderness (L) Neurological exam: Present: alert Skin exam: Present: warm, dry, intact, normal color. Absent: rash Course Vital Signs 04/05/22 04/05/22 05:42 09:24 Temperature 100.1 F H 98.4 F Pulse Rate 131 H 90 Respiratory 18 18 Rate Blood Pressure 113/64 97/58 O2 Sat by Pulse 100 99 Oximetry Medical Decision Making - Medical Decision Making 26-year-old female presented for fever. Patient's been having on and off sympto ms. Patient lab was unremarkable her no acute changes liver enzymes are improving. Patient's had recent cholecystectomy. Patient had negative chest x- ray labs urinalysis over test. CT was repeated secondary to fever and which there is nonspecific fluid, no gas formation or abscess, patient has no leukocytosis. Patient most has a viral illness she is recommend follow-up with PCP and surgeon for recheck and return for any worsening changes symptoms. - Lab Data Result diagrams: 04/05/22 06:43 04/05/22 06:43 Lab Results 04/05/22 04/05/22 04/05/22 Range/Units 06:43 06:43 06:43 WBC 4.1 (3.8-10.6) k/uL RBC 4.42 (3.80-5.40) m/uL Hgb 11.1 L (11.4-16.0) gm/dL Hct 34.5 (34.0-46.0) % MCV 78.0 L (80.0-100.0) fL MCH 25.1 (25.0-35.0) pg MCHC 32.1 (31.0-37.0) g/dL RDW 15.0 (11.5-15.5) % Plt Count 261 (150-450) k/uL MPV 7.0 Neutrophils % 80 % Lymphocytes % 9 % Monocytes % 7 % Eosinophils % 1 % Basophils % 1 % Neutrophils # 3.3 (1.3-7.7) k/uL Lymphocytes # 0.4 L (1.0-4.8) k/uL Monocytes # 0.3 (0-1.0) k/uL Eosinophils # 0.0 (0-0.7) k/uL Basophils # 0.0 (0-0.2) k/uL Sodium 137 (137-145) mmol/L Potassium 4.2 (3.5-5.1) mmol/L Chloride 109 H (98-107) mmol/L Carbon Dioxide 18 L (22-30) mmol/L Anion Gap 10 mmol/L BUN 10 (7-17) mg/dL Creatinine 0.80 (0.52-1.04) mg/dL Est GFR (CKD-EPI)AfAm >90 (>60 ml/min/1.73 sqM) Est GFR (CKD-EPI)NonAf >90 (>60 ml/min/1.73 sqM) Glucose 110 H (74-99) mg/dL Calcium 8.6 (8.4-10.2) mg/dL Total Bilirubin 0.3 (0.2-1.3) mg/dL AST 25 (14-36) U/L ALT 37 H (4-34) U/L Alkaline Phosphatase 143 H (38-126) U/L C-Reactive Protein 5.2 H (<1.0) mg/dL Total Protein 7.3 (6.3-8.2) g/dL Albumin 4.2 (3.5-5.0) g/dL Urine Color Urine Appearance (Clear) Urine pH (5.0-8.0) Ur Specific [place] (1.001-1.035) Urine Protein (Negative) Urine Glucose (UA) (Negative) Urine Ketones (Negative) Urine Blood (Negative) Urine Nitrite (Negative) Urine Bilirubin (Negative) Urine Urobilinogen (<2.0) mg/dL Ur Leukocyte Esterase (Negative) Urine HCG, Qual (Not Detectd) Coronavirus (PCR) (Not Detectd) Heterophile Antibody Negative (Negative) 04/05/22 04/05/22 04/05/22 Range/Units 06:49 06:54 06:54 WBC (3.8-10.6) k/uL RBC (3.80-5.40) m/uL Hgb (11.4-16.0) gm/dL Hct (34.0-46.0) % MCV (80.0-100.0) fL MCH (25.0-35.0) pg MCHC (31.0-37.0) g/dL RDW (11.5-15.5) % Plt Count (150-450) k/uL MPV Neutrophils % % Lymphocytes % % Monocytes % % Eosinophils % % Basophils % % Neutrophils # (1.3-7.7) k/uL Lymphocytes # (1.0-4.8) k/uL Monocytes # (0-1.0) k/uL Eosinophils # (0-0.7) k/uL Basophils # (0-0.2) k/uL Sodium (137-145) mmol/L Potassium (3.5-5.1) mmol/L Chloride (98-107) mmol/L Carbon Dioxide (22-30) mmol/L Anion Gap mmol/L BUN (7-17) mg/dL Creatinine (0.52-1.04) mg/dL Est GFR (CKD-EPI)AfAm (>60 ml/min/1.73 sqM) Est GFR (CKD-EPI)NonAf (>60 ml/min/1.73 sqM) Glucose (74-99) mg/dL Calcium (8.4-10.2) mg/dL Total Bilirubin (0.2-1.3) mg/dL AST (14-36) U/L ALT (4-34) U/L Alkaline Phosphatase (38-126) U/L C-Reactive Protein (<1.0) mg/dL Total Protein (6.3-8.2) g/dL Albumin (3.5-5.0) g/dL Urine Color Colorless Urine Appearance Clear (Clear) Urine pH 6.0 (5.0-8.0) Ur Specific [place] 1.004 (1.001-1.035) Urine Protein Negative (Negative) Urine Glucose (UA) Negative (Negative) Urine Ketones Negative (Negative) Urine Blood Negative (Negative) Urine Nitrite Negative (Negative) Urine Bilirubin Negative (Negative) Urine Urobilinogen <2.0 (<2.0) mg/dL Ur Leukocyte Esterase Negative (Negative) Urine HCG, Qual Not Detected (Not Detectd) Coronavirus (PCR) Not Detected (Not Detectd) Heterophile Antibody (Negative) Disposition Clinical Impression: Fever Disposition: HOME SELF-CARE Condition: Stable Instructions (If sedation given, give patient instructions): Fever in Adults (ED) Additional Instructions: Please return to the Emergency Department if symptoms worsen or any other concerns. Is patient prescribed a controlled substance at d/c from ED?: No Referrals: None,Stated [Primary Care Provider] - 1-2 days Time of Disposition: 10:16
[2022-04-05 06:58] LABS: Basophils % (A) 1 %; Eosinophils % (A) 1 %; HCT 34.5 % (34.0-46.0); HGB 11.1 gm/dL (11.4-16.0); Lymphocytes # (A) 0.4 k/uL (1.0-4.8); Lymphocytes % (A) 9 %; MCH 25.1 pg (25.0-35.0); MCHC 32.1 g/dL (31.0-37.0); Monocytes # (A) 0.3 k/uL (0-1.0); Monocytes % (A) 7 %; Neutrophils # (A) 3.3 k/uL (1.3-7.7); Neutrophils % (A) 80 %; Platelet Count 261 k/uL (150-450); RBC 4.42 m/uL (3.80-5.40); WBC 4.1 k/uL (3.8-10.6)
[2022-04-05 07:20] LABS: ALT 37 U/L (4-34); AST 25 U/L (14-36); African American GFR (CKD) >90 (>60 ml/min/1.73 sqM); Albumin 4.2 g/dL (3.5-5.0); Alkaline Phosphatase 143 U/L (38-126); Anion Gap 10 mmol/L; Blood Urea Nitrogen 10 mg/dL (7-17); Calcium 8.6 mg/dL (8.4-10.2); Carbon Dioxide 18 mmol/L (22-30); Chloride 109 mmol/L (98-107); Glucose 110 mg/dL (74-99); Non-African American GFR(CKD) >90 (>60 ml/min/1.73 sqM); Potassium 4.2 mmol/L (3.5-5.1); Sodium 137 mmol/L (137-145); Total Bilirubin 0.3 mg/dL (0.2-1.3); Total Protein 7.3 g/dL (6.3-8.2)
[2022-04-05 07:23] LABS: Appearance,Urine Clear (Clear); Bilirubin,Urine Negative (Negative); Blood,Urine Negative (Negative); Color,Urine Colorless; Glucose,Urine (UA) Negative (Negative); Ketones,Urine Negative (Negative); Leukocyte Esterase,Urine Negative (Negative); Nitrite,Urine Negative (Negative); Protein,Urine Negative (Negative); Specific Gravity,Urine 1.004 (1.001-1.035); Urobilinogen,Urine <2.0 mg/dL (<2.0)
[2022-04-05 07:39] LABS: C Reactive Protein 5.2 mg/dL (<1.0)
--- NOTE | 2022-04-05 08:11 | XR ---
EXAMINATION TYPE: XR chest 2V DATE OF EXAM: 04/05/2022 COMPARISON: NONE HISTORY: Fever TECHNIQUE: Frontal and lateral views of the chest are obtained. FINDINGS: There is no focal air space opacity, pleural effusion, or pneumothorax seen. The cardiac silhouette size is within normal limits. The right hemidiaphragm is elevated. Surgical clips are pres ent in the right upper quadrant. The osseous structures are intact. IMPRESSION: No acute cardiopulmonary process.
--- NOTE | 2022-04-05 10:07 | CT ---
EXAMINATION TYPE: CT abdomen pelvis w con CT DLP: 769.1 mGycm, Automated exposure control for dose reduction was used. DATE OF EXAM: 04/05/2022 9:17 AM COMPARISON: CT abdomen pelvis most recent from 03/31/2022. CLINICAL INDICATION:Female, 26 years old with history of Fever post op; Fever, post op TECHNIQUE: Standard CT of the abdomen and pelvis following the administration of 100 cc of Isovue 3 00 IV contrast material. Coronal and sagittal reformats were performed. FINDINGS: LOWER CHEST: Unremarkable ABDOMEN LIVER: Unremarkable GALLBLADDER AND BILE DUCTS: The gallbladder is surgically absent. There is fluid demonstrated with th e gallbladder fossa without evidence of gas. PANCREAS: Unremarkable. SPLEEN: Unremarkable. ADRENAL GLANDS: Unremarkable. KIDNEYS AND URETERS: No evidence of hydronephrosis or renal calculus. The ureters are unremarkable. PELVIS BLADDER: Unremarkable REPRODUCTIVE: Unremarkable. ABDOMEN & PELVIS STOMACH AND BOWEL: Stomach and duodenum are unremarkable. No focal wall thickening or surrounding inf lammatory changes. The appendix is within normal limits. No evidence of bowel obstruction. PERITONEUM: No evidence of pneumoperitoneum. No ascites. VASCULATURE: No evidence of aortic aneurysm. MUSCULOSKELETAL: No acute osseous abnormalities LYMPH NODES: No gross evidence for lymphadenopathy. SOFT TISSUE/ABDOMINAL WALL: Stranding demonstrated within the subcutaneous tissues of the right ventr al upper abdominal wall likely related to recent surgery. No organized fluid collection. IMPRESSION: Postsurgical changes from cholecystectomy with nonspecific fluid demonstrated within the gallbladder fossa without evidence of gas. Etiologies include seroma versus abscess versus duct leak.
[2022-04-05 10:36] VITALS: BP 91/60; PULSE 83; TEMP 98.1
== END 2022-04-05 10:58 | disposition home or self-care (01) ==
LOC: EC 05:41
DX: R50.9 Fever, unspecified (principal); Z20.822 Contact with and (suspected) exposure to COVID-19; Z91.09 Other allergy status, other than to drugs and biological substances; Z90.49 Acquired absence of other specified parts of digestive tract
CPT/HCPCS: 36415; 80053; 85025; 86140; 86308; 81003; 81025; 87635; 71046; 74177; 99284; 96360; Q9967